=== PATIENT | male | born 1945 | race Caucasian/White ===

== ENCOUNTER 2023-06-13 11:26 | Inpatient (IN) ==
[2023-06-13 12:05] LABS: Basophils # (auto) 0.03 K/uL (0.00-0.20); Basophils % (auto) 0.3 %; Eosinophils # (auto) 0.17 K/uL (0.00-0.50); Eosinophils % (auto) 1.8 %; Hematocrit (blood only) 41.6 % (42.0-52.0); Hemoglobin 13.2 g/dl (14.0-18.0); Immature Granulocytes # (auto) 0.03 K/uL (0.01-0.20); Immature Granulocytes % (auto) 0.3 %; Lymphocytes # (auto) 1.75 K/uL (1.20-3.40); Lymphocytes % (auto) 18.9 %; Mean Corpuscular Hemoglobin 25.3 pg (25.0-34.0); Mean Corpuscular Hgb Conc 31.7 g/dL (32.0-36.0); Mean Corpuscular Volume 79.7 fL (80.0-100.0); Mean Platelet Volume 9.4 fL (9.4-12.4); Monocytes # (auto) 0.57 K/uL (0.11-0.59); Monocytes % (auto) 6.1 %; Neutrophils # (auto) 6.73 K/uL (1.40-6.50); Neutrophils % (auto) 72.6 %; Platelet Count 183 K/uL (130-400); RDW Coefficient of Variation 16.3 % (11.5-14.5); RDW Standard Deviation 46.5 fL (36.4-46.3); Red Blood Count 5.22 M/uL (4.70-6.10); White Blood Count 9.28 K/ul (4.8-10.8)
[2023-06-13 12:22] LABS: Albumin Globulin Ratio 1.9 (0.9-2); Albumin Level 4.5 gm/dl (3.4-5.0); BUN Creatinine Ratio 13.2 (10-20); Bilirubin,Total 1.4 mg/dl (0.2-1.0); Calcium 9.3 mg/dl (8.6-10.3); Creatinine Clr Calc Pharmacy 67.8 ml/min; Est GFR (African American) 78.1 ml/min; Est GFR (Non-African American) 67.4 ml/min; Globulin 2.4 gm/dl (2.5-4.0); Potassium 3.9 mmol/L (3.5-5.1); Total Protein 6.9 gm/dl (6.0-8.3)
[2023-06-13 12:29] LABS: Troponin I High Sensitivity 19.3 pg/ml (0-20)
[2023-06-13 12:33] LABS: INR 1.1 (0.9-1.1); Partial Thromboplastin Time 29 Seconds (21-31); Prothrombin Time 11.9 Seconds (9.0-12.0)
--- NOTE | 2023-06-13 12:48 | XRay Report ---
XR chest 1V not portable HISTORY: 78 years-old Male Chest pain, nonspecific COMPARISON: 02/23/2015 TECHNIQUE: PA view of the chest FINDINGS: Cardiac silhouette is enlarged. Mild chronic interstitial coarsening of the lung bases. No pneumothor ax, pleural effusion, overt pulmonary edema or airspace consolidation. Degenerative changes of the sh oulders and spine. IMPRESSION: 1. No acute process. 2. Cardiomegaly with chronic interstitial coarsening. ACT 112: Negative or not required by law. The above report was generated using voice recognition software. It may contain grammatical, syntax o r spelling errors. Electronically signed by: Cm Vicente M.D. 06/13/2023 12:47 PM
[2023-06-13] MEDS: FUROSEMIDE 40 MG/4 ML VIAL IV ONE (12:53)
[2023-06-13] MEDS: NITROGLYCERIN SL 0.4 MG/TAB TAB SL STA (12:53)
[2023-06-13] MEDS: OPTIRAY 320 125ml IV ONE (13:11)
--- NOTE | 2023-06-13 13:53 | CT Scan Report ---
CT ANGIOGRAM OF THE CHEST CLINICAL HISTORY: Dyspnea COMPARISON STUDY: Chest x-ray dated 06/13/2023. Abdominal CT dated 12/13/2022. TECHNIQUE: Following the IV administration of 118 cc of Optiray 320, CT angiogram of the chest was pe rformed from the upper abdomen to the thoracic inlet utilizing the pulmonary embolus protocol. Images are reviewed in the axial, sagittal, and coronal planes. 3-D MIPS images are created and assessed. I V contrast was administered without complication. A dose lowering technique was utilized adhering to the principles of ALARA. CT DOSE: 952.7 mGy.cm FINDINGS: Thyroid: Mildly atrophic and heterogeneous. Thoracic aorta: There is moderate atherosclerotic calcification of the thoracic aorta, which is vladimir l in caliber and demonstrates standard 3-vessel arch anatomy. The aorta is not well opacified. Pulmonary vasculature: The pulmonary trunk is normal in caliber. There are no filling defects identif ied in main, lobar, or segmental pulmonary branches to suggest pulmonary embolus. Heart: The heart is enlarged and without pericardial effusion. There are scattered coronary artery ca lcifications. Lungs and pleural spaces: There are small pleural effusions with dependent atelectasis. The trachea a nd central airways are clear. There are mild patchy nodular airspace opacities throughout the right l ower lobe. A 5 mm right middle lobe pulmonary nodule is seen on image #96, and a 3 mm right middle lo be nodule is seen on image #104. There are scattered calcified granulomas. Mediastinum: There are scattered subcentimeter mediastinal lymph nodes. These are not pathologically enlarged by size criteria. Hattie: Mildly enlarged hilar nodes measure up to 10 mm in short axis. Axillae: There is no axillary lymphadenopathy. Upper abdomen: The spleen is enlarged measuring 16.1 cm in length. Reflux of contrast into the IVC an d hepatic veins suggests cardiac dysfunction. There is a tiny hiatal hernia. Skeletal structures: The skeletal structures are osteopenic. Degenerative change is noted in the shou lders and thoracic spine. No lytic or blastic bony lesions are seen. IMPRESSION: 1. There is no evidence of pulmonary embolus in the main, lobar, or segmental pulmonary arteries. 2. Mild patchy/nodular consolidation in the right lower lobe likely represents an infectious/inflamma tory pneumonitis. A follow-up chest CT in 3-4 months time is recommended to document resolution. 3. Cardiomegaly and small pleural effusions. 4. There is a 5 mm right middle lobe pulmonary nodule. This is unchanged from 12/13/2022 and should a lso be reassessed at follow-up. 5. Splenomegaly. 6. Additional findings as above. ACT 112: Negative or not required by law. Electronically signed by: Rickie Lee M.D. 06/13/2023 1:50 PM
--- NOTE | 2023-06-13 14:25 | History & Physical Report ---
Date of Service June 13, 2023 Assessment & Plan (1) Hypoxia: Plan: -Admit to med/tele on pulse oximetry -Currently stable on 2L NC and in no respiratory distress at rest -Presented to the ED with approximately 1 week of progressive BL LE swelling, SOB/BECK -Appears volume overloaded on exam with elevated BNP and signs of congestive failure on CXR/CTA of the chest -Patient is not on diuretics outpatient and has not been using a low sodium diet -Will add on procal, full respiratory biofire, and sputum culture w/gram stain with infectious/inflammatory findings on CTA of the chest -Would recommend patient follow up with his previous [employer] or be setup with our group with his hx of working in [place] for 27 years -Incentive spirometry, flutter therapy, PRN albuterol -PRN O2 to keep SpO2 at or above 92% -Will obtain TTE as we do not have a previous in our system -S/P 40 mg IV lasix in the ED, currently with good response >Will continue with 20 mg IV lasix BID17 tomorrow -Monitor I's/O's q-shift and daily weight -SQ lovenox for DVT PPX -HH/DMII diet with 2gm sodium and 1800 mL restrictions -AM CBC, BMP, mag, PT/INR (2) Bradycardia: Plan: -Patient has been bradycardic since arrival with HR ranging from the 30's-50's -Patient has been asymptomatic -Usually occurs at rest with increase to the 50-60's with standing or exertion -Holding Atenolol for now -Continue to monitor on tele -Follow TTE -Fall precuations ordered (3) CHF exacerbation: Plan: -See hypoxia (4) PAF (paroxysmal atrial fibrillation): Plan: -Currently in sinus bradycardia -Not on anticoagulation as he is rarely in afib -Will hold Atenolol on admission with bradycardia in the ED -Continue to monitor on tele (5) DMII (diabetes mellitus, type 2): Plan: -Hold metformin and Glipizide -Monitor BSG ACHS, goal is 110-160 -Start CF 50 ACHS for now -Hold basal insulin and CR to prevent hypoglycemia -Adjust regimen as needed (6) Essential hypertension: Plan: -Stable -Continue losartan and amlodipine -Holding Atenolol with bradycardia -Monitor closely with IV diuresis Plan The patient was discussed with Dr. Lezama at the time of the admission History of Present Illness Chief Complaint: SOB Primary Care Provider: [facility] Gerald is a 78 year old male with a PMH significant for HTN, afib (not on anticoagulation), TRAVIS, hyperlipidemia, and DMII who presented to the [facility] ED on 06/13/23 with a chief complaint of SOB. He was noted to be hypertensive at 192/108, hypoxic at 84% on RA, bradycardic with HR in the 40-50's and afebrile. Labs were significant for a BNP of 529 (no previous to compare) and high sen trop WNL. Chest xray was read as "1. No acute process. 2. Cardiomegaly with chronic interstitial coarsening. ". CTA of the chest was read as "1. There is no evidence of pulmonary embolus in the main, lobar, or segmental pulmonary arteries. 2. Mild patchy/nodular consolidation in the right lower lobe likely represents an infectious/inflammatory pneumonitis. A follow-up chest CT in 3-4 months time is recommended to document resolution. 3. Cardiomegaly and small pleural effusions. 4. There is a 5 mm right middle lobe pulmonary nodule. This is unchanged from 12/13/2022 and should also be reassessed at follow-up. 5. Splenomegaly. 6. Additional findings as above.". Prior to admission the patient was given 40 mg IV lasix and 0.4 mg SL nitroglycerin. At the time of the exam the patient was sitting in bed in no acute distress with his bedside, history was obtained from both. Has been experiencing progressive BL LE swelling and SOB at rest and with exertion over the past week. Has been experiencing a non-productive cough over the same time span. Denies recent fever, chills, chest pain, hemoptysis, nausea, vomiting, diarrhea, dysuria, hematuria, melena, or recent trauma. When asked, his states that he uses salt at most meals. He is not on diuretic therapy at home. Was diagnosed with TRAVIS but his PTSD from [place] prevents him from using HS CPAP. Worked in [employer] for approximately 27 years. 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 He is a DNR/DNI and his is his POA. Please refer to Dr. Lezama's attestation for any changes to the treatment plan Allergies Allergy/AdvReac Type Severity Reaction Status Date / Time apixaban [From Eliquis] Allergy Severe Leg Unverified 06/13/23 15:50 swelling and numbness lisinopril Allergy Unknown Verified 06/13/23 15:50 Home Medications Medication Instructions Recorded Confirmed Type ascorbic acid (vitamin C) 250 mg 0 mg PO DAILY 08/02/22 06/13/23 History tablet atorvastatin 80 mg tablet 80 mg PO HS 08/02/22 06/13/23 History carboxymethylcellulose sodium 0.5 0 drp ophthalmic (eye) BID 08/02/22 06/13/23 History % eye drops in a dropperette cholecalciferol (vitamin D3) 25 0 mcg PO DAILY 08/02/22 06/13/23 History mcg (1,000 unit) capsule ferrous sulfate 325 mg (65 mg 0 mg PO DAILY 08/02/22 06/13/23 History iron) tablet glipizide 5 mg tablet 5 mg PO BID 08/02/22 06/13/23 History losartan 100 mg tablet 100 mg PO DAILY 08/02/22 06/13/23 History metformin 1,000 mg tablet 1,000 mg PO BID 08/02/22 06/13/23 History omega 1-zkz-kod-fish oil 1,000 mg 0 cap PO DAILY 08/02/22 06/13/23 History (120 mg-180 mg) capsule (Fish Oil) omeprazole 20 mg capsule,delayed 0 mg PO DAILY 08/02/22 06/13/23 History release tamsulosin 0.4 mg capsule (Flomax) 0.4 mg PO BID 08/02/22 06/13/23 History magnesium oxide 420 mg tablet 0 mg PO DAILY 08/22/22 06/13/23 History Saccharomyces boulardii 250 mg 0 mg PO BID 06/13/23 06/13/23 History capsule (Florastor) metoprolol succinate 25 mg 12.5 mg PO DAILY 06/13/23 06/13/23 History tablet,extended release 24 hr Past Med/Surg History Medical History Diverticulitis PAF (paroxysmal atrial fibrillation) Edema H/O blood clots Sleep apnea Gastro-esophageal reflux Essential hypertension Surgical History H/O tooth extraction Family History Father Myocardial infarction Mother Natural Social History Smoking Status: Never smoker Hx Alcohol Use: No Hx Substance Use: No Communication Ability: Effective Beliefs That Will Affect Care: None marital status: Current Living Situation: Spouse current occupational status: retired How many Children do You have: 3 Feels Safe at Home: Yes caffeine: Yes Dental Care, Regularly: Yes Assistive Devices: Denture - Lower, Glasses and Hearing Aid - Bilateral Physical Exam Physical Exam: Physical Exam: General: In no acute distress, stated age, morbidly obese, chronically ill appearing but non-toxic HEENT: Normocephalic, atraumatic, no scleral icterus, pupils around round, symmetrical, and reactive to light, +JVD, moist mucus membranes, trachea midline, no thyromegaly Chest/Pulm: Mild respiratory distress when standing to use the bedside urinal, improves with rest, symmetrical chest expansion, rhonchi noted in the RLL with decreased breath sounds in the LLL, scattered expiratory wheezing in all other gross Cardiac: bradycardic rate, regular rhythm, no murmurs noted Abdomen: Negative for ascites and bruising, normoactive bowel sounds, soft, non-tender to palpation throughout Musculoskeletal: Symmetrical and without signs of acute trauma, upper and lower extremities with full ROM, no atrophy, spasticity, or flaccidity Extremities: Radial, dorsalis pedis, and posterior tibial pulses are intact and symmetrical, 1-2+ pitting edema noted in the BL LE's Skin: Warm, dry, no rashes , lesions, or scars noted Neuro: Alert and oriented to person, place, month, year, and president, no focal defects, no tremors noted Psych: No acute distress, pleasant, calm and cooperative during the exam Results & Data Results & Data Vital Signs (Past 12 Hours) Vital Signs Temp Pulse Pulse Resp BP BP Pulse Ox 06/13/23 13:45 58 L 19 174/99 H 95 06/13/23 13:23 51 L 24 92 06/13/23 13:09 93 06/13/23 13:08 84 L 06/13/23 12:54 50 L 06/13/23 11:31 36.9 C 60 18 192/108 H 92 O2 Del Method O2 Flow Rate 06/13/23 13:45 Nasal Cannula 2 06/13/23 13:23 Nasal Cannula 2 06/13/23 13:09 Nasal Cannula 2 06/13/23 13:08 Room Air 06/13/23 12:54 06/13/23 11:31 Room Air Laboratory Results Abnormal lab results 06/13/23 Range/Units 11:42 Hgb 13.2 L (14.0-18.0) g/dl Hct 41.6 L (42.0-52.0) % MCV 79.7 L (80.0-100.0) fL MCHC 31.7 L (32.0-36.0) g/dL RDW Std Deviation 46.5 H (36.4-46.3) fL RDW Coeff of Shalom 16.3 H (11.5-14.5) % Neut # (Auto) 6.73 H (1.40-6.50) K/uL Carbon Dioxide 33 H (21-32) mmol/L Glucose 102 H (70-99(Fasting)) mg/dl Total Bilirubin 1.4 H (0.2-1.0) mg/dl B-Natriuretic Peptide 529 H (0-100) pg/ml Globulin 2.4 L (2.5-4.0) gm/dl Diagnostic Findings Chest X-Ray 06/13/23 11:35 XR chest 1V not portable HISTORY: 78 years-old Male Chest pain, nonspecific COMPARISON: 02/23/2015 TECHNIQUE: PA view of the chest FINDINGS: Cardiac silhouette is enlarged. Mild chronic interstitial coarsening of the lung bases. No pneumothorax, pleural effusion, overt pulmonary edema or airspace consolidation. Degenerative changes of the shoulders and spine. IMPRESSION: 1. No acute process. 2. Cardiomegaly with chronic interstitial coarsening. ACT 112: Negative or not required by law. The above report was generated using voice recognition software. It may contain grammatical, syntax or spelling errors. Electronically signed by: Cm Vicente M.D. 06/13/2023 12:47 PM Chest CTA 06/13/23 12:49 CT ANGIOGRAM OF THE CHEST CLINICAL HISTORY: Dyspnea COMPARISON STUDY: Chest x-ray dated 06/13/2023. Abdominal CT dated 12/13/2022. TECHNIQUE: Following the IV administration of 118 cc of Optiray 320, CT angiogram of the chest was performed from the upper abdomen to the thoracic inlet utilizing the pulmonary embolus protocol. Images are reviewed in the axial, sagittal, and coronal planes. 3-D MIPS images are created and assessed. IV contrast was administered without complication. A dose lowering technique was utilized adhering to the principles of ALARA. CT DOSE: 952.7 mGy.cm FINDINGS: Thyroid: Mildly atrophic and heterogeneous. Thoracic aorta: There is moderate atherosclerotic calcification of the thoracic aorta, which is normal in caliber and demonstrates standard 3-vessel arch anatomy. The aorta is not well opacified. Pulmonary vasculature: The pulmonary trunk is normal in caliber. There are no filling defects identified in main, lobar, or segmental pulmonary branches to suggest pulmonary embolus. Heart: The heart is enlarged and without pericardial effusion. There are scattered coronary artery calcifications. Lungs and pleural spaces: There are small pleural effusions with dependent atelectasis. The trachea and central airways are clear. There are mild patchy nodular airspace opacities throughout the right lower lobe. A 5 mm right middle lobe pulmonary nodule is seen on image #96, and a 3 mm right middle lobe nodule is seen on image #104. There are scattered calcified granulomas. Mediastinum: There are scattered subcentimeter mediastinal lymph nodes. These are not pathologically enlarged by size criteria. Hattie: Mildly enlarged hilar nodes measure up to 10 mm in short axis. Axillae: There is no axillary lymphadenopathy. Upper abdomen: The spleen is enlarged measuring 16.1 cm in length. Reflux of contrast into the IVC and hepatic veins suggests cardiac dysfunction. There is a tiny hiatal hernia. Skeletal structures: The skeletal structures are osteopenic. Degenerative change is noted in the shoulders and thoracic spine. No lytic or blastic bony lesions are seen. IMPRESSION: 1. There is no evidence of pulmonary embolus in the main, lobar, or segmental pulmonary arteries. 2. Mild patchy/nodular consolidation in the right lower lobe likely represents an infectious/inflammatory pneumonitis. A follow-up chest CT in 3-4 months time is recommended to document resolution. 3. Cardiomegaly and small pleural effusions. 4. There is a 5 mm right middle lobe pulmonary nodule. This is unchanged from 12/13/2022 and should also be reassessed at follow-up. 5. Splenomegaly. 6. Additional findings as above. ACT 112: Negative or not required by law. Electronically signed by: Rickie Lee M.D. 06/13/2023 1:50 PM ECG Additional Comments: Undetermined rhythm Right bundle branch block Abnormal ECG When compared with ECG of 22-AUG-2022 13:31, (unconfirmed) Current undetermined rhythm precludes rhythm comparison, needs review Non-specific change in ST segment in Inferior leads Non-specific change in ST segment in Anterior leads Code Status & VTE Plan Code Status DNR/DNI VTE Prophylaxis Plan VTE Prophylaxis will be ordered: Yes Supervising Physician Co-Signing Physician Notes I personally saw and examined the patient. I verified all perera points and agree with Myke Salazar PA-C with the following exceptions and/or additions: 78 year old male presents to the ER with shortness of breath (orthopnea) and leg swelling. Unknown if having weight gain. No chest pain, diarrhea, constipation, abdominal pain, nausea, vomiting, fever or chills. Slow progressive worsening of symptoms over the last week. O/E HS RRR, no murmurs, Chest bibasal crackles, Abdo SNT, 2+ pitting edema b/l equal A/P Acute congestive heart failure with unknown ejection fraction - TTE, Lasix 40mg IV given in ER, since he is diuretic naive will start with 20mg IV BID with strict I&Os, daily weights. UA to assess for proteinuria [place] exposure with abnormal CT - recommend follow up with pulmonology PG Care Time/CCT Total # of Minutes Spent Total Time Spent with Patient: Total time spent is greater than 50% in coordination of care (as documented) at patient's floor/unit and/or counseling patient: Coding [place] [address] INT INP/OBS CARE 3/75MIN Patient Type Established Medical Decision Making High Complexity Diagnoses Hypoxia R09.02 Bradycardia R00.1 CHF exacerbation I50.9 PAF (paroxysmal atrial fibrillation) I48.0 DMII (diabetes mellitus, type 2) E11.9 Essential hypertension I10
[2023-06-13] MEDS ORDERED: ALBUTEROL 0.5% NEB SOLN 2.5 MG/0.5 ML VIAL NEB PRN (14:45)
[2023-06-13] MEDS ORDERED: GLUCOSE 40% GEL 15 GM TUBE PO PRN (14:56)
[2023-06-13] MEDS ORDERED: CARBOHYDRATES FOR HYPOGLYCEMIA PO PRN (14:56)
[2023-06-13] MEDS ORDERED: GLUCOSE 10 TAB/TUBE PO PRN (14:56)
[2023-06-13] MEDS ORDERED: GLUCAGON FOR INJ 1 MG VIAL SQ PRN (14:56)
[2023-06-13] MEDS ORDERED: DEXTROSE 50% 50 ML SYRINGE IV PRN (14:56)
[2023-06-13 16:08] LABS: Adenovirus PCR Not Detected (NotDetected); Bordetella parapertussis PCR Not Detected (NotDetected); Bordetella pertussis PCR Not Detected (NotDetected); Chlamydia pneumoniae PCR Not Detected (NotDetected); Coronavirus 229E PCR Not Detected (NotDetected); Coronavirus CoV-2 (COVID19)PCR Not Detected (NotDetected); Coronavirus HKU1 PCR Not Detected (NotDetected); Coronavirus NL63 PCR Not Detected (NotDetected); Coronavirus OC43PCR Not Detected (NotDetected); Human Metapneumovirus PCR Not Detected (NotDetected); Influenza A PCR Not Detected (NotDetected); Influenza B PCR Not Detected (NotDetected); Mycoplasma pneumoniae PCR Not Detected (NotDetected); Parainfluenza Virus 1 PCR Not Detected (NotDetected); Parainfluenza Virus 2 PCR Not Detected (NotDetected); Parainfluenza Virus 3 PCR Not Detected (NotDetected); Parainfluenza Virus 4 PCR Not Detected (NotDetected); Respiratory Syncytial VirusPCR Not Detected (NotDetected); Rhinovirus/Enterovirus PCR Not Detected (NotDetected)
--- NOTE | 2023-06-13 16:49 | Electrocardiogram Report ---
Test Reason : Blood Pressure : / mmHG Vent. Rate : 054 BPM Atrial Rate : 070 BPM P-R Int : 000 ms QRS Dur : 114 ms QT Int : 468 ms P-R-T Axes : 061 029 -11 degrees QTc Int : 443 ms Sinus rhythm with Mobitz 1 AV block Right bundle branch block Abnormal ECG When compared with ECG of 22-AUG-2022 13:31, (unconfirmed) Non-specific change in ST segment in Inferior leads Non-specific change in ST segment in Anterior leads Confirmed by Ry Mueller ([id number]) on 06/13/2023 4:49:34 PM Referred By: REFERRED SELF Confirmed By:Robert Mueller
--- NOTE | 2023-06-13 18:16 | XCELERA ---
[id number] \\[id number]
[2023-06-13] MEDS: INSULIN ASPART PER UNIT CHARGE SC SCH (18:20)
--- NOTE | 2023-06-13 18:29 | Emergency Department Note ---
History of Present Illness General Chief Complaint: Shortness of Breath/Dyspnea Stated Complaint: SOB, TROUBLE BREATHING Time Seen by Provider: 06/13/23 12:16 History of Present Illness Provider Complaint: shortness of breath Onset (ago): week(s) (1) Severity: severe Consistency/Duration: + progressively worsening Relieved By: + nothing Exacerbated By: + exertion and + coughing Known history of: congestive heart failure Associated symptoms: no chest pain, no pain with inspiration, no fever, no cough, no wheezing, no sputum production, no orthopnea, no lower extremity pain, no nausea/vomiting, no abdominal pain or no chest congestion Related Data Home oxygen amount: none Home Medications Medication Instructions Recorded Confirmed Type ascorbic acid (vitamin C) 250 mg 0 mg PO DAILY 08/02/22 06/13/23 History tablet atorvastatin 80 mg tablet 80 mg PO HS 08/02/22 06/13/23 History carboxymethylcellulose sodium 0.5 0 drp ophthalmic (eye) BID 08/02/22 06/13/23 History % eye drops in a dropperette cholecalciferol (vitamin D3) 25 0 mcg PO DAILY 08/02/22 06/13/23 History mcg (1,000 unit) capsule ferrous sulfate 325 mg (65 mg 0 mg PO DAILY 08/02/22 06/13/23 History iron) tablet glipizide 5 mg tablet 5 mg PO BID 08/02/22 06/13/23 History losartan 100 mg tablet 100 mg PO DAILY 08/02/22 06/13/23 History metformin 1,000 mg tablet 1,000 mg PO BID 08/02/22 06/13/23 History omega 4-tom-ovy-fish oil 1,000 mg 0 cap PO DAILY 08/02/22 06/13/23 History (120 mg-180 mg) capsule (Fish Oil) omeprazole 20 mg capsule,delayed 0 mg PO DAILY 08/02/22 06/13/23 History release tamsulosin 0.4 mg capsule (Flomax) 0.4 mg PO BID 08/02/22 06/13/23 History magnesium oxide 420 mg tablet 0 mg PO DAILY 08/22/22 06/13/23 History Saccharomyces boulardii 250 mg 0 mg PO BID 06/13/23 06/13/23 History capsule (Florastor) metoprolol succinate 25 mg 12.5 mg PO DAILY 06/13/23 06/13/23 History tablet,extended release 24 hr Allergies Allergy/AdvReac Type Severity Reaction Status Date / Time apixaban [From Eliquis] Allergy Severe Leg Unverified 06/13/23 15:50 swelling and numbness lisinopril Allergy Unknown Verified 06/13/23 15:50 Past Med/Surg History Medical History Diverticulitis PAF (paroxysmal atrial fibrillation) Edema H/O blood clots Sleep apnea Gastro-esophageal reflux Essential hypertension Surgical History H/O tooth extraction Family History Father Myocardial infarction Mother Natural Social History Smoking Status: Never smoker marital status: Current Living Situation: Spouse current occupational status: retired How many Children do You have: 3 Feels Safe at Home: Yes caffeine: Yes Dental Care, Regularly: Yes Physical Exam 2 Vital Signs: Vital Signs - 24 hr 06/13/23 11:31 06/13/23 12:40 06/13/23 12:54 Temperature 36.9 C Temperature Source Temporal Artery Sc an Pulse Rate 60 57 L 50 L Pulse Rate [Apical ] Pulse Rate from Sp O2 Sensor 55 L Pulse Rhythm Respiratory Rate 18 21 Respiratory Effort / Characteristics Non-Labored Respiratory Depth Normal Respiratory Patter n Regular Blood Pressure 192/108 H Blood Pressure [Le ft Arm] Blood Pressure Ami n 136 Blood Pressure Ami n [Left Arm] Blood Pressure Pos ition [Left Arm] Pulse Oximetry 92 92 Oxygen Delivery Me thod Room Air Nasal Cannula Oxygen Flow Rate 2 Sepsis Recent Feve r Within 48 Hours No Sepsis New/Unexpla ined Change in Men sarabjit Status N/A Sepsis Action Take n by Nursing No Action Required 06/13/23 13:00 06/13/23 13:01 06/13/23 13:08 Temperature Temperature Source Pulse Rate 69 Pulse Rate [Apical ] Pulse Rate from Sp O2 Sensor 60 Pulse Rhythm Respiratory Rate 24 Respiratory Effort / Characteristics Respiratory Depth Respiratory Patter n Blood Pressure 195/97 H Blood Pressure [Le ft Arm] Blood Pressure Ami n 127 Blood Pressure Ami n [Left Arm] Blood Pressure Pos ition [Left Arm] Pulse Oximetry 91 84 L Oxygen Delivery Me thod Nasal Cannula Room Air Oxygen Flow Rate 2 Sepsis Recent Feve r Within 48 Hours Sepsis New/Unexpla ined Change in Men sarabjit Status Sepsis Action Take n by Nursing 06/13/23 13:09 06/13/23 13:22 06/13/23 13:22 Temperature Temperature Source Pulse Rate 53 L Pulse Rate [Apical ] Pulse Rate from Sp O2 Sensor 54 L Pulse Rhythm Respiratory Rate 22 Respiratory Effort / Characteristics Respiratory Depth Respiratory Patter n Blood Pressure 190/94 H Blood Pressure [Le ft Arm] Blood Pressure Ami n 119 Blood Pressure Ami n [Left Arm] Blood Pressure Pos ition [Left Arm] Pulse Oximetry 93 94 Oxygen Delivery Me thod Nasal Cannula Nasal Cannula Oxygen Flow Rate 2 2 Sepsis Recent Feve r Within 48 Hours Sepsis New/Unexpla ined Change in Men sarabjit Status Sepsis Action Take n by Nursing 06/13/23 13:23 06/13/23 13:30 06/13/23 13:31 Temperature Temperature Source Pulse Rate 51 L 86 Pulse Rate [Apical ] Pulse Rate from Sp O2 Sensor Pulse Rhythm Irregular Respiratory Rate 24 96 H Respiratory Effort / Characteristics Respiratory Depth Respiratory Patter n Blood Pressure Blood Pressure [Le ft Arm] Blood Pressure Ami n Blood Pressure Ami n [Left Arm] Blood Pressure Pos ition [Left Arm] Pulse Oximetry 92 Oxygen Delivery Me thod Nasal Cannula Oxygen Flow Rate 2 Sepsis Recent Feve r Within 48 Hours Sepsis New/Unexpla ined Change in Men sarabjit Status Sepsis Action Take n by Nursing 06/13/23 13:31 06/13/23 13:45 06/13/23 13:45 Temperature Temperature Source Pulse Rate 58 L Pulse Rate [Apical ] 58 L Pulse Rate from Sp O2 Sensor Pulse Rhythm Respiratory Rate 19 17 Respiratory Effort / Characteristics Non-Labored Sponta neous Respiratory Depth Normal Respiratory Patter n Blood Pressure 159/124 H Blood Pressure [Le ft Arm] 174/99 H Blood Pressure Ami n 133 Blood Pressure Ami n [Left Arm] 124 Blood Pressure Pos ition [Left Arm] Sitting Pulse Oximetry 95 Oxygen Delivery Me thod Nasal Cannula Oxygen Flow Rate 2 Sepsis Recent Feve r Within 48 Hours Sepsis New/Unexpla ined Change in Men sarabjit Status Sepsis Action Take n by Nursing 06/13/23 13:45 06/13/23 14:00 06/13/23 14:00 Temperature Temperature Source Pulse Rate Pulse Rate [Apical ] Pulse Rate from Sp O2 Sensor 54 L Pulse Rhythm Respiratory Rate Respiratory Effort / Characteristics Respiratory Depth Respiratory Patter n Blood Pressure 174/99 H 178/101 H Blood Pressure [Le ft Arm] Blood Pressure Ami n 108 144 Blood Pressure Ami n [Left Arm] Blood Pressure Pos ition [Left Arm] Pulse Oximetry 94 Oxygen Delivery Me thod Oxygen Flow Rate Sepsis Recent Feve r Within 48 Hours Sepsis New/Unexpla ined Change in Men sarabjit Status Sepsis Action Take n by Nursing 06/13/23 14:15 06/13/23 14:15 Temperature Temperature Source Pulse Rate 61 Pulse Rate [Apical ] Pulse Rate from Sp O2 Sensor 59 L Pulse Rhythm Respiratory Rate 20 Respiratory Effort / Characteristics Respiratory Depth Respiratory Patter n Blood Pressure 174/104 H Blood Pressure [Le ft Arm] Blood Pressure Ami n 133 Blood Pressure Ami n [Left Arm] Blood Pressure Pos ition [Left Arm] Pulse Oximetry 90 Oxygen Delivery Me thod Oxygen Flow Rate Sepsis Recent Feve r Within 48 Hours Sepsis New/Unexpla ined Change in Men sarabjit Status Sepsis Action Take n by Nursing Physical Exam: Physical Exam GENERAL: oriented to person, place, and time. appears well-developed and well- nourished. HENT: Exam performed. - Head: Normocephalic and atraumatic. EYES: Conjunctivae and EOM are normal. Right eye exhibits no discharge. Left eye exhibits no discharge. No scleral icterus. NECK: Normal range of motion. Neck supple. No JVD present. CV: Normal rate, regular rhythm, normal heart sounds and intact distal pulses. 2+ pitting edema of the bilateral lower extremities. palpable radial pulses bue. PULM/CHEST: Effort normal and breath sounds normal. No respiratory distress. No stridor. no wheezes. no rales. ABD: The abdomen is soft. There is no tenderness. NEURO: Motor and sensation grossly intact. SKIN: Skin is warm and dry. He is not diaphoretic. PSYCH: normal mood and affect. Behavior is normal. Judgment and thought content normal. Course Course 1216: The patient was evaluated in room B9. A complete history and physical exam was performed Cardiac monitoring: An order was placed for continuous cardiac monitoring. The monitor shows a rate of 50 with sinus rhythm interpreted by me Clinically the patient appears to be in CHF and is very hypertensive. Nitroglycerin ordered for the patient. 1400: Nursing reports me that the patient got up to use the restroom and then became acutely dyspneic and his oxygen saturation dropped down to 80% on room air. Patient placed on supplemental oxygen via nasal cannula which improved the patient's oxygen saturation. 1425: Vital signs stable on supplemental oxygen via nasal cannula. Labs showed normal troponin and elevated proBNP. CTA of the chest is negative for PE. Imaging shows cardiomegaly with bilateral pleural effusions. Lasix ordered for the patient. Patient will be admitted to the [facility]. Administered Medications Insulin Aspart (Insulin Aspart Per Unit Charge) 0 units SC ACHS HONEY Stop: 07/13/23 16:29 Last Admin: 06/13/23 18:20 Dose: Not Given Documented By: JAYSHREE Discontinued Medications Furosemide (Furosemide 40 Mg/4 Ml Vial) 40 mg IV ONE ONE Stop: 06/13/23 12:50 Last Admin: 06/13/23 12:53 Dose: 40 mg Documented By: JEFFREY Ioversol (Optiray 320 125ml) 118 ml IV ONCE ONE Stop: 06/13/23 13:12 Last Admin: 06/13/23 13:11 Dose: 118 ml Documented By: STEVE Nitroglycerin (Nitroglycerin Sl 0.4 Mg/Tab Tab) 0.4 mg SL NOW STA Stop: 06/13/23 12:50 Last Admin: 06/13/23 12:53 Dose: 0.4 mg Documented By: JEFFREY Medical Decision Making Laboratory Data Attestation: I reviewed the patient's lab results. 06/13/23 11:42 06/13/23 11:42 Lab Results 06/13/23 Range/Units 11:42 WBC 9.28 (4.8-10.8) K/ul RBC 5.22 (4.70-6.10) M/uL Hgb 13.2 L (14.0-18.0) g/dl Hct 41.6 L (42.0-52.0) % MCV 79.7 L (80.0-100.0) fL MCH 25.3 (25.0-34.0) pg MCHC 31.7 L (32.0-36.0) g/dL RDW Std Deviation 46.5 H (36.4-46.3) fL RDW Coeff of Shalom 16.3 H (11.5-14.5) % Plt Count 183 (130-400) K/uL MPV 9.4 (9.4-12.4) fL Immature Gran % (Auto) 0.3 % Neut % (Auto) 72.6 % Lymph % (Auto) 18.9 % [place] % (Auto) 6.1 % Eos % (Auto) 1.8 % Baso % (Auto) 0.3 % Neut # (Auto) 6.73 H (1.40-6.50) K/uL Lymph # (Auto) 1.75 (1.20-3.40) K/uL [place] # (Auto) 0.57 (0.11-0.59) K/uL Eos # (Auto) 0.17 (0.00-0.50) K/uL Baso # (Auto) 0.03 (0.00-0.20) K/uL Immature Gran # (Auto) 0.03 (0.01-0.20) K/uL PT 11.9 (9.0-12.0) Seconds INR 1.1 (0.9-1.1) APTT 29 (21-31) Seconds PTT Ratio 1.0 Sodium 139 (136-145) mmol/L Potassium 3.9 (3.5-5.1) mmol/L Chloride 100 (98-107) mmol/L Carbon Dioxide 33 H (21-32) mmol/L Anion Gap 6 (3-11) BUN 14 (6-23) mg/dl Creatinine 1.06 (0.6-1.4) mg/dl Est Cr Clr Drug Dosing 67.8 ml/min Est GFR ( Amer) 78.1 ml/min Est GFR (Non-Af Amer) 67.4 ml/min BUN/Creatinine Ratio 13.2 (10-20) Glucose 102 H (70-99(Fasting)) mg/dl Calcium 9.3 (8.6-10.3) mg/dl Total Bilirubin 1.4 H (0.2-1.0) mg/dl AST 15 (13-39) U/L ALT 21 (7-52) U/L Alkaline Phosphatase 83 (34-104) U/L Troponin I High Sens 19.3 (0-20) pg/ml B-Natriuretic Peptide 529 H (0-100) pg/ml Total Protein 6.9 (6.0-8.3) gm/dl Albumin 4.5 (3.4-5.0) gm/dl Globulin 2.4 L (2.5-4.0) gm/dl Albumin/Globulin Ratio 1.9 (0.9-2) Procalcitonin < 0.02 (0-0.5) ng/ml Imaging Data Attestation: I personally reviewed and interpreted this imaging study as follows: My Impression: Chest x-ray: Cardiomegaly with no cephalization Radiologist's Impression: Chest X-Ray 06/13/23 11:35 XR chest 1V not portable HISTORY: 78 years-old Male Chest pain, nonspecific COMPARISON: 02/23/2015 TECHNIQUE: PA view of the chest FINDINGS: Cardiac silhouette is enlarged. Mild chronic interstitial coarsening of the lung bases. No pneumothorax, pleural effusion, overt pulmonary edema or airspace consolidation. Degenerative changes of the shoulders and spine. IMPRESSION: 1. No acute process. 2. Cardiomegaly with chronic interstitial coarsening. ACT 112: Negative or not required by law. The above report was generated using voice recognition software. It may contain grammatical, syntax or spelling errors. Electronically signed by: Cm Vicente M.D. 06/13/2023 12:47 PM Chest CTA 06/13/23 12:49 CT ANGIOGRAM OF THE CHEST CLINICAL HISTORY: Dyspnea COMPARISON STUDY: Chest x-ray dated 06/13/2023. Abdominal CT dated 12/13/2022. TECHNIQUE: Following the IV administration of 118 cc of Optiray 320, CT angiogram of the chest was performed from the upper abdomen to the thoracic inlet utilizing the pulmonary embolus protocol. Images are reviewed in the axial, sagittal, and coronal planes. 3-D MIPS images are created and assessed. IV contrast was administered without complication. A dose lowering technique was utilized adhering to the principles of ALARA. CT DOSE: 952.7 mGy.cm FINDINGS: Thyroid: Mildly atrophic and heterogeneous. Thoracic aorta: There is moderate atherosclerotic calcification of the thoracic aorta, which is normal in caliber and demonstrates standard 3-vessel arch anatomy. The aorta is not well opacified. Pulmonary vasculature: The pulmonary trunk is normal in caliber. There are no filling defects identified in main, lobar, or segmental pulmonary branches to suggest pulmonary embolus. Heart: The heart is enlarged and without pericardial effusion. There are scattered coronary artery calcifications. Lungs and pleural spaces: There are small pleural effusions with dependent atelectasis. The trachea and central airways are clear. There are mild patchy nodular airspace opacities throughout the right lower lobe. A 5 mm right middle lobe pulmonary nodule is seen on image #96, and a 3 mm right middle lobe nodule is seen on image #104. There are scattered calcified granulomas. Mediastinum: There are scattered subcentimeter mediastinal lymph nodes. These are not pathologically enlarged by size criteria. Hattie: Mildly enlarged hilar nodes measure up to 10 mm in short axis. Axillae: There is no axillary lymphadenopathy. Upper abdomen: The spleen is enlarged measuring 16.1 cm in length. Reflux of contrast into the IVC and hepatic veins suggests cardiac dysfunction. There is a tiny hiatal hernia. Skeletal structures: The skeletal structures are osteopenic. Degenerative change is noted in the shoulders and thoracic spine. No lytic or blastic bony lesions are seen. IMPRESSION: 1. There is no evidence of pulmonary embolus in the main, lobar, or segmental pulmonary arteries. 2. Mild patchy/nodular consolidation in the right lower lobe likely represents an infectious/inflammatory pneumonitis. A follow-up chest CT in 3-4 months time is recommended to document resolution. 3. Cardiomegaly and small pleural effusions. 4. There is a 5 mm right middle lobe pulmonary nodule. This is unchanged from 12/13/2022 and should also be reassessed at follow-up. 5. Splenomegaly. 6. Additional findings as above. ACT 112: Negative or not required by law. Electronically signed by: Rickie Lee M.D. 06/13/2023 1:50 PM ECG Data Attestation: I personally reviewed and interpreted this ECG as follows: Interpretation: Sinus arrhythmia with a rate of 54. Right bundle branch block present. No ST elevation or ST depression. [facility] Narrative 1216: The patient was evaluated in room B9. A complete history and physical exam was performed Cardiac monitoring: An order was placed for continuous cardiac monitoring. The monitor shows a rate of 50 with sinus rhythm interpreted by me Clinically the patient appears to be in CHF and is very hypertensive. Nitroglycerin ordered for the patient. 1400: Nursing reports me that the patient got up to use the restroom and then became acutely dyspneic and his oxygen saturation dropped down to 80% on room air. Patient placed on supplemental oxygen via nasal cannula which improved the patient's oxygen saturation. 1425: Vital signs stable on supplemental oxygen via nasal cannula. Labs showed normal troponin and elevated proBNP. CTA of the chest is negative for PE. Imaging shows cardiomegaly with bilateral pleural effusions. Lasix ordered for the patient. Patient will be admitted to the [facility] team. Impression & Plan Hypoxia, CHF exacerbation Critical Care Time Critical Care Time: Yes Total Critical Care Time: 77 I have personally spent greater than 77 minutes of critical care time in the direct management of this patient. This includes bedside care, interpretation of diagnostic studies, and testing, discussion with consultants, patient, and family members, and other required patient management activities. This 77 minutes is in excess of all separately billable procedures. Discharge Plan Visit Data Chief Complaint: Shortness of Breath/Dyspnea Stated Complaint: SOB, TROUBLE BREATHING ED Provider: Toño Keane Discharge Problem: Hypoxia, CHF exacerbation Patient Disposition: Admitted As Inpatient Discharge Instructions Interventions: ED Discharge Assessment Last Done: 06/13/23 17:15 Discharge Problem: CHF exacerbation Qualifiers: Heart failure type: unspecified Qualified Code(s): I50.9 - Heart failure, unspecified
[2023-06-13] MEDS: ENOXAPARIN INJ 40 MG/0.4 ML SYR SQ SCH (20:01)
[2023-06-13 23:04] LABS: Appearance Urine Clear (Clear); Bacteria Urine Automated None Seen (None Seen); Bilirubin Urine Negative (Negative); Blood Urine Negative (Negative); Cast Urine Automated 0-2 /lpf (0-2); Color Urine Yellow; Epithelial Cell Urine Auto 0-2 /hpf (0-2); Glucose Urine UA Negative (Negative); Ketones Urine Negative (Negative); Leukocyte Esterase Urine Negative (Negative); Nitrite Urine Negative (Negative); Protein Urine 1+ (Negative); RBC Urine Automated 0-2 /hpf (0-2); Specific Gravity Urine 1.006 (1.000-1.030); Urobilinogen Urine Negative (Negative); WBC Urine Automated 0-5 /hpf (0-5); pH Urine 7.5 (4.5-7.5)
[2023-06-14 04:02] LABS: Basophils # (auto) 0.04 K/uL (0.00-0.20); Basophils % (auto) 0.5 %; Eosinophils # (auto) 0.15 K/uL (0.00-0.50); Eosinophils % (auto) 1.8 %; Hematocrit (blood only) 40.4 % (42.0-52.0); Hemoglobin 12.7 g/dl (14.0-18.0); Immature Granulocytes # (auto) 0.04 K/uL (0.01-0.20); Immature Granulocytes % (auto) 0.5 %; Lymphocytes # (auto) 1.53 K/uL (1.20-3.40); Lymphocytes % (auto) 18.6 %; Mean Corpuscular Hemoglobin 25.5 pg (25.0-34.0); Mean Corpuscular Hgb Conc 31.4 g/dL (32.0-36.0); Mean Corpuscular Volume 81.1 fL (80.0-100.0); Mean Platelet Volume 9.8 fL (9.4-12.4); Monocytes # (auto) 0.52 K/uL (0.11-0.59); Monocytes % (auto) 6.3 %; Neutrophils # (auto) 5.96 K/uL (1.40-6.50); Neutrophils % (auto) 72.3 %; Platelet Count 186 K/uL (130-400); RDW Coefficient of Variation 16.4 % (11.5-14.5); RDW Standard Deviation 47.6 fL (36.4-46.3); Red Blood Count 4.98 M/uL (4.70-6.10); White Blood Count 8.24 K/ul (4.8-10.8)
[2023-06-14 04:19] LABS: BUN Creatinine Ratio 12.8 (10-20); Calcium 8.5 mg/dl (8.6-10.3); Creatinine Clr Calc Pharmacy 57.2 ml/min; Est GFR (Non-African American) 55.2 ml/min; Magnesium 1.5 mg/dl (1.7-2.4); Potassium 3.4 mmol/L (3.5-5.1)
--- NOTE | 2023-06-14 07:46 | Hospitalist Progress Note ---
Date of Service June 14, 2023 Assessment & Plan (1) Hypoxia: Plan: -Admit to med/tele on pulse oximetry -Currently stable on 2L NC and in no respiratory distress at rest -Presented to the ED with approximately 1 week of progressive BL LE swelling, SOB/BECK -Appears volume overloaded on exam with elevated BNP and signs of congestive failure on CXR/CTA of the chest -Patient is not on diuretics outpatient and has not been using a low sodium diet -Will add on procal, full respiratory biofire, and sputum culture w/gram stain with infectious/inflammatory findings on CTA of the chest -Would recommend patient follow up with his previous [employer] or be setup with our group with his hx of working in [employer] for 27 years -Incentive spirometry, flutter therapy, PRN albuterol -PRN O2 to keep SpO2 at or above 92% -Will obtain TTE as we do not have a previous in our system -S/P 40 mg IV lasix in the ED, currently with good response >Will continue with 20 mg IV lasix BID17 tomorrow -Monitor I's/O's q-shift and daily weight -SQ lovenox for DVT PPX -HH/DMII diet with 2gm sodium and 1800 mL restrictions -AM CBC, BMP, mag, PT/INR Imaging noting reflux of contrast into IVC and hepatic veins suggests cardiac dysfunction. Tiny hiatal hernia noted Cardiomegaly and small pleural effusions.Mild patchy/nodular consolidation in the right lower lobe likely represents an infectious/inflammatory pneumonitis. A follow-up chest CT in 3-4 months time is recommended to document resolution. Lasix 20mg IV BID ordered, K PO supplementation ordered for today, 40meq to bring up a little more given ongoing diuresis/hx afib. Of note, outpt cards note brought on by hypomagnesemia --> Mag 1.5 this morning, 3gm IV ordered. Monitor/replacement as needed -- He also reports he had not known in afib and never w/ monitor. Likely benefit for holter monitor to see how often in, strongly encouraged f/u discussions about AC//considering xarelto/coumadin for risk prevention. Remains on telemetry Add TSH to labs given hx pafib/bradycardia and no prior TSH in system. Prior noted subclinical hypothyroidism Weights appear 109.7kg--> 108.6kg (was up to 110kg in February but 106kg in July/November)--> 106.8kg today Discussed I suspect multiple components -- he does endorse TRAVIS but unable to tolerate CPAP due to PTSD but able to tolerate nasal cannula without issue. Discussed could consider nasal pillows as untreated sleep apnea contributing to elevated BP as well as arrythmias and heart failure. Was provided hydralazine w/ improvement in BP. Lasix increased to 40mg IV BID for now, leg edema/weights improved Wanting to transfer to for ongoing care -- CM contacting for discussion Repeat labs ordered for this afternoon Supplemental O2 as needed (2) Bradycardia: Plan: -Patient has been bradycardic since arrival with HR ranging from the 30's-50's -Patient has been asymptomatic -Usually occurs at rest with increase to the 50-60's with standing or exertion -Holding Atenolol for now -- was ordered and given metoprolol 12.5mg this morning, further held/discontinued appears on metoprolol at home , not atenolol Confirmed with patient/, had been taking metoprolol as on his medication list however patient reports he had been taking a WHOLE tablet, so was actually on 25mg daily --> STOPPED per cardiology due to bradycardia/mobitz Would arrange for holter/event monitor as outpatient, continue to monitor on telemetry ECHO ordered as above, fall precaution SH check, check T4/T3 for completeness (3) CHF exacerbation: Plan: -See hypoxia also suspect degree underlying TRAVIS contributing, orthopnea/prior diagnosis but not able to tolerate CPAP mask however as above tolerating the nasal cannula without issue and likely benefit for discussions for for CPAP w/ nasal pillows (4) PAF (paroxysmal atrial fibrillation): Plan: -Currently in sinus bradycardia -Not on anticoagulation as he is rarely in afib -Will hold METOPROLOL on admission with bradycardia in the ED , given this morning but DISCONTINUED (was taking 25mg as outlined above) -Continue to monitor on tele Mag low, IV replacement ordered --> resuming mag oxide BID as takes at home as well (5) DMII (diabetes mellitus, type 2): Plan: -Hold metformin and Glipizide -Monitor BSG ACHS, goal is 110-160 -Start CF 50 ACHS for now -Hold basal insulin and CR to prevent hypoglycemia -Adjust regimen as needed (6) Essential hypertension: Plan: -Stable -Continue losartan and amlodipine -Holding Atenolol with bradycardia -Monitor closely with IV diuresis (7) Pulmonary nodule: Plan: On imaging, 5 mm right middle lobe pulmonary nodule. This is unchanged from 12/13/2022 and should also be reassessed at follow-up. Also notes scattered calcified granulomas follow up CT chest in 3-4 mo rec for patchy/nodular consolidation RLL infectious/inflammatory pneumonitis (8) Anemia: Plan: Hgb 13 range but MCV borderline and was 79.7 on admission Will add iron studies given hypoxia as well/replacement as indicated Plan The patient was discussed with Dr. Lezama at the time of the admission Admission and Anticipated Discharge Date Admission Date: June 13, 2023 Subjective Eval this morning, in room. Reports feeling better/breathing improved. Discussed I suspect multiple components -- he does endorse TRAVIS but unable to tolerate CPAP due to PTSD but able to tolerate nasal cannula without issue. Discussed could consider nasal pillows as untreated sleep apnea contributing to elevated BP as well as arrythmias and heart failure. Was provided hydralazine. Leg edema appears improved and weights improved. Wanting to transfer to [facility] for ongoing care -- says got call for f/u with metal hanger but does not remmeber the name. Also inquired about eliquis use for his afib, dc'd due to bleeding/not being in afib, however he and deny ever having a holter or event monitor and when asked if he knew he was in afib prior he denied ever knowing such. Likely benefit from outpatient event monitor while they are waiting/considering xarelto/coumadin for risk prevention. CM contacting [facility] and will plan for call this afternoon to discuss. No fever/chills. Questions/concerns addressed at this time. Results & Data Results & Data Vital Signs (Past 12 Hours) Vital Signs Temp Pulse Pulse Pulse Resp BP Pulse Ox 06/14/23 03:05 36.7 C 72 24 202/78 H 93 06/13/23 23:38 48 L 06/13/23 23:06 36.9 C 65 24 192/92 H 92 06/13/23 21:20 60 06/13/23 21:15 06/13/23 19:46 36.8 C 61 36 H 177/65 H 93 O2 Del Method O2 Flow Rate 06/14/23 03:05 Nasal Cannula 2 06/13/23 23:38 06/13/23 23:06 Nasal Cannula 2 06/13/23 21:20 06/13/23 21:15 Nasal Cannula 06/13/23 19:46 Nasal Cannula 2.5 Laboratory Results 06/14/23 06/13/23 06/13/23 Range/Units 03:08 19:58 18:03 WBC 8.24 (4.8-10.8) K/ul RBC 4.98 (4.70-6.10) M/uL Hgb 12.7 L (14.0-18.0) g/dl Hct 40.4 L (42.0-52.0) % MCV 81.1 (80.0-100.0) fL MCH 25.5 (25.0-34.0) pg MCHC 31.4 L (32.0-36.0) g/dL RDW Std Deviation 47.6 H (36.4-46.3) fL RDW Coeff of Shalom 16.4 H (11.5-14.5) % Plt Count 186 (130-400) K/uL MPV 9.8 (9.4-12.4) fL Immature Gran % (Auto) 0.5 % Neut % (Auto) 72.3 % Lymph % (Auto) 18.6 % [place] % (Auto) 6.3 % Eos % (Auto) 1.8 % Baso % (Auto) 0.5 % Neut # (Auto) 5.96 (1.40-6.50) K/uL Lymph # (Auto) 1.53 (1.20-3.40) K/uL [place] # (Auto) 0.52 (0.11-0.59) K/uL Eos # (Auto) 0.15 (0.00-0.50) K/uL Baso # (Auto) 0.04 (0.00-0.20) K/uL Immature Gran # (Auto) 0.04 (0.01-0.20) K/uL PT (9.0-12.0) Seconds INR (0.9-1.1) APTT (21-31) Seconds PTT Ratio Sodium 141 (136-145) mmol/L Potassium 3.4 L (3.5-5.1) mmol/L Chloride 98 (98-107) mmol/L Carbon Dioxide 34 H (21-32) mmol/L Anion Gap 9 (3-11) BUN 16 (6-23) mg/dl Creatinine 1.25 (0.6-1.4) mg/dl Est Cr Clr Drug Dosing 57.2 ml/min Est GFR ( Amer) 64.0 ml/min Est GFR (Non-Af Amer) 55.2 ml/min BUN/Creatinine Ratio 12.8 (10-20) Glucose 134 H (70-99(Fasting)) mg/dl POC Glucose 121 H 106 H (70-99) mg/dl Calcium 8.5 L (8.6-10.3) mg/dl Magnesium 1.5 L (1.7-2.4) mg/dl Total Bilirubin (0.2-1.0) mg/dl AST (13-39) U/L ALT (7-52) U/L Alkaline Phosphatase (34-104) U/L Troponin I High Sens (0-20) pg/ml B-Natriuretic Peptide (0-100) pg/ml Total Protein (6.0-8.3) gm/dl Albumin (3.4-5.0) gm/dl Globulin (2.5-4.0) gm/dl Albumin/Globulin Ratio (0.9-2) Procalcitonin (0-0.5) ng/ml Urine Color Urine Appearance (Clear) Urine pH (4.5-7.5) Ur Specific [place] (1.000-1.030) Urine Protein (Negative) Urine Glucose (UA) (Negative) Urine Ketones (Negative) Urine Blood (Negative) Urine Nitrite (Negative) Urine Bilirubin (Negative) Urine Urobilinogen (Negative) Ur Leukocyte Esterase (Negative) Urine WBC (Auto) (0-5) /hpf Urine RBC (Auto) (0-2) /hpf U Hyaline Cast (Auto) (0-2) /lpf U Epithel Cells (Auto) (0-2) /hpf Urine Bacteria (Auto) (None Seen) Adenovirus (PCR) (NotDetected) B. pertussis DNA (PCR) (NotDetected) B.parapertussis DNA PCR (NotDetected) C. pneumoniae DNA (PCR) (NotDetected) Coronavirus OC43 (PCR) (NotDetected) Coronavirus HKU1 (PCR) (NotDetected) Coronavirus 229E (PCR) (NotDetected) SARS-CoV-2 (PCR) (NotDetected) Coronavirus NL63 (PCR) (NotDetected) Human Metapneumovir PCR (NotDetected) Influenza Type A (PCR) (NotDetected) Influenza Type B (PCR) (NotDetected) M. pneumoniae (PCR) (NotDetected) Parainfluenza 1 (PCR) (NotDetected) Parainfluenza 2 (PCR) (NotDetected) Parainfluenza 3 (PCR) (NotDetected) Parainfluenza 4 (PCR) (NotDetected) RSV (PCR) (NotDetected) Entero/Rhino (PCR) (NotDetected) 06/13/23 06/13/23 06/13/23 Range/Units 14:29 13:05 11:42 WBC 9.28 (4.8-10.8) K/ul RBC 5.22 (4.70-6.10) M/uL Hgb 13.2 L (14.0-18.0) g/dl Hct 41.6 L (42.0-52.0) % MCV 79.7 L (80.0-100.0) fL MCH 25.3 (25.0-34.0) pg MCHC 31.7 L (32.0-36.0) g/dL RDW Std Deviation 46.5 H (36.4-46.3) fL RDW Coeff of Shalom 16.3 H (11.5-14.5) % Plt Count 183 (130-400) K/uL MPV 9.4 (9.4-12.4) fL Immature Gran % (Auto) 0.3 % Neut % (Auto) 72.6 % Lymph % (Auto) 18.9 % [place] % (Auto) 6.1 % Eos % (Auto) 1.8 % Baso % (Auto) 0.3 % Neut # (Auto) 6.73 H (1.40-6.50) K/uL Lymph # (Auto) 1.75 (1.20-3.40) K/uL [place] # (Auto) 0.57 (0.11-0.59) K/uL Eos # (Auto) 0.17 (0.00-0.50) K/uL Baso # (Auto) 0.03 (0.00-0.20) K/uL Immature Gran # (Auto) 0.03 (0.01-0.20) K/uL PT 11.9 (9.0-12.0) Seconds INR 1.1 (0.9-1.1) APTT 29 (21-31) Seconds PTT Ratio 1.0 Sodium 139 (136-145) mmol/L Potassium 3.9 (3.5-5.1) mmol/L Chloride 100 (98-107) mmol/L Carbon Dioxide 33 H (21-32) mmol/L Anion Gap 6 (3-11) BUN 14 (6-23) mg/dl Creatinine 1.06 (0.6-1.4) mg/dl Est Cr Clr Drug Dosing 67.8 ml/min Est GFR ( Amer) 78.1 ml/min Est GFR (Non-Af Amer) 67.4 ml/min BUN/Creatinine Ratio 13.2 (10-20) Glucose 102 H (70-99(Fasting)) mg/dl POC Glucose (70-99) mg/dl Calcium 9.3 (8.6-10.3) mg/dl Magnesium (1.7-2.4) mg/dl Total Bilirubin 1.4 H (0.2-1.0) mg/dl AST 15 (13-39) U/L ALT 21 (7-52) U/L Alkaline Phosphatase 83 (34-104) U/L Troponin I High Sens 19.3 (0-20) pg/ml B-Natriuretic Peptide 529 H (0-100) pg/ml Total Protein 6.9 (6.0-8.3) gm/dl Albumin 4.5 (3.4-5.0) gm/dl Globulin 2.4 L (2.5-4.0) gm/dl Albumin/Globulin Ratio 1.9 (0.9-2) Procalcitonin < 0.02 (0-0.5) ng/ml Urine Color Yellow Urine Appearance Clear (Clear) Urine pH 7.5 (4.5-7.5) Ur Specific [place] 1.006 (1.000-1.030) Urine Protein 1+ H (Negative) Urine Glucose (UA) Negative (Negative) Urine Ketones Negative (Negative) Urine Blood Negative (Negative) Urine Nitrite Negative (Negative) Urine Bilirubin Negative (Negative) Urine Urobilinogen Negative (Negative) Ur Leukocyte Esterase Negative (Negative) Urine WBC (Auto) 0-5 (0-5) /hpf Urine RBC (Auto) 0-2 (0-2) /hpf U Hyaline Cast (Auto) 0-2 (0-2) /lpf U Epithel Cells (Auto) 0-2 (0-2) /hpf Urine Bacteria (Auto) None Seen (None Seen) Adenovirus (PCR) Not Detected (NotDetected) B. pertussis DNA (PCR) Not Detected (NotDetected) B.parapertussis DNA PCR Not Detected (NotDetected) C. pneumoniae DNA (PCR) Not Detected (NotDetected) Coronavirus OC43 (PCR) Not Detected (NotDetected) Coronavirus HKU1 (PCR) Not Detected (NotDetected) Coronavirus 229E (PCR) Not Detected (NotDetected) SARS-CoV-2 (PCR) Not Detected (NotDetected) Coronavirus NL63 (PCR) Not Detected (NotDetected) Human Metapneumovir PCR Not Detected (NotDetected) Influenza Type A (PCR) Not Detected (NotDetected) Influenza Type B (PCR) Not Detected (NotDetected) M. pneumoniae (PCR) Not Detected (NotDetected) Parainfluenza 1 (PCR) Not Detected (NotDetected) Parainfluenza 2 (PCR) Not Detected (NotDetected) Parainfluenza 3 (PCR) Not Detected (NotDetected) Parainfluenza 4 (PCR) Not Detected (NotDetected) RSV (PCR) Not Detected (NotDetected) Entero/Rhino (PCR) Not Detected (NotDetected) Diagnostic Findings Chest X-Ray 06/13/23 11:35 XR chest 1V not portable HISTORY: 78 years-old Male Chest pain, nonspecific COMPARISON: 02/23/2015 TECHNIQUE: PA view of the chest FINDINGS: Cardiac silhouette is enlarged. Mild chronic interstitial coarsening of the lung bases. No pneumothorax, pleural effusion, overt pulmonary edema or airspace consolidation. Degenerative changes of the shoulders and spine. IMPRESSION: 1. No acute process. 2. Cardiomegaly with chronic interstitial coarsening. ACT 112: Negative or not required by law. The above report was generated using voice recognition software. It may contain grammatical, syntax or spelling errors. Electronically signed by: Cm Vicente M.D. 06/13/2023 12:47 PM Chest CTA 06/13/23 12:49 CT ANGIOGRAM OF THE CHEST CLINICAL HISTORY: Dyspnea COMPARISON STUDY: Chest x-ray dated 06/13/2023. Abdominal CT dated 12/13/2022. TECHNIQUE: Following the IV administration of 118 cc of Optiray 320, CT angiogram of the chest was performed from the upper abdomen to the thoracic inlet utilizing the pulmonary embolus protocol. Images are reviewed in the axial, sagittal, and coronal planes. 3-D MIPS images are created and assessed. IV contrast was administered without complication. A dose lowering technique was utilized adhering to the principles of ALARA. CT DOSE: 952.7 mGy.cm FINDINGS: Thyroid: Mildly atrophic and heterogeneous. Thoracic aorta: There is moderate atherosclerotic calcification of the thoracic aorta, which is normal in caliber and demonstrates standard 3-vessel arch anatomy. The aorta is not well opacified. Pulmonary vasculature: The pulmonary trunk is normal in caliber. There are no filling defects identified in main, lobar, or segmental pulmonary branches to suggest pulmonary embolus. Heart: The heart is enlarged and without pericardial effusion. There are scattered coronary artery calcifications. Lungs and pleural spaces: There are small pleural effusions with dependent atelectasis. The trachea and central airways are clear. There are mild patchy nodular airspace opacities throughout the right lower lobe. A 5 mm right middle lobe pulmonary nodule is seen on image #96, and a 3 mm right middle lobe nodule is seen on image #104. There are scattered calcified granulomas. Mediastinum: There are scattered subcentimeter mediastinal lymph nodes. These are not pathologically enlarged by size criteria. Hattie: Mildly enlarged hilar nodes measure up to 10 mm in short axis. Axillae: There is no axillary lymphadenopathy. Upper abdomen: The spleen is enlarged measuring 16.1 cm in length. Reflux of contrast into the IVC and hepatic veins suggests cardiac dysfunction. There is a tiny hiatal hernia. Skeletal structures: The skeletal structures are osteopenic. Degenerative change is noted in the shoulders and thoracic spine. No lytic or blastic bony lesions are seen. IMPRESSION: 1. There is no evidence of pulmonary embolus in the main, lobar, or segmental pulmonary arteries. 2. Mild patchy/nodular consolidation in the right lower lobe likely represents an infectious/inflammatory pneumonitis. A follow-up chest CT in 3-4 months time is recommended to document resolution. 3. Cardiomegaly and small pleural effusions. 4. There is a 5 mm right middle lobe pulmonary nodule. This is unchanged from 12/13/2022 and should also be reassessed at follow-up. 5. Splenomegaly. 6. Additional findings as above. ACT 112: Negative or not required by law. Electronically signed by: Rickie Lee M.D. 06/13/2023 1:50 PM PG Care Time/CCT Total # of Minutes Spent Total Time Spent with Patient: Total time spent is greater than 50% in coordination of care (as documented) at patient's floor/unit and/or counseling patient: Coding Diagnoses Hypoxia R09.02 Bradycardia R00.1 CHF exacerbation I50.9 Heart failure type: unspecified PAF (paroxysmal atrial fibrillation) I48.0 DMII (diabetes mellitus, type 2) E11.9 Essential hypertension I10 Pulmonary nodule R91.1 Anemia D64.9 (3) CHF exacerbation Heart failure type: unspecified Qualified Code(s): I50.9 - Heart failure, uns pecified
[2023-06-14] MEDS: MAGNESIUM SULFATE / D5W 1 GM/100 ML BAG IV SCH (08:22)
[2023-06-14] MEDS: ACETAMINOPHEN 325 MG TAB PO PRN (08:22)
[2023-06-14] MEDS: FUROSEMIDE INJ 20 MG/2 ML VIAL IV SCH ×2 (08:23→10:16)
[2023-06-14] MEDS: POTASSIUM CHLORIDE CRTAB 20 MEQ TABCR PO STA (08:23)
[2023-06-14] MEDS: TAMSULOSIN HCL 0.4 MG CAP PO SCH (08:23)
[2023-06-14] MEDS: hydrALAZINE HCL 20 MG/ML VIAL IV PRN (08:23)
[2023-06-14] MEDS: METOPROLOL SUCC 25MG EXT REL TAB PO SCH (08:23)
[2023-06-14] MEDS: PANTOprazole 40 MG TAB PO SCH (08:23)
[2023-06-14 09:35] LABS: Thyroid Stimulating Hormone 5.52 uIu/ml (0.300-4.500)
[2023-06-14 09:41] LABS: Ferritin 15.5 ng/ml (8-388)
[2023-06-14] MEDS ORDERED: IRON SUCROSE 300 MG in SODIUM CHLORIDE 0.9% 250 ML IV SCH (10:00)
[2023-06-14 10:11] LABS: T4 Free Thyroxine 0.86 ng/dl (0.61-1.60)
--- NOTE | 2023-06-14 10:25 | Cardiology Consultation ---
Date of Consultation June 14, 2023 Assessment & Plan (1) CHF exacerbation: (2) Dyspnea: (3) Essential hypertension: (4) Bradycardia: (5) PAF (paroxysmal atrial fibrillation): Plan 1. Dyspnea: He seems to have had an element of mild pulmonary vascular congestion. This was associated some mild lower extremity edema as well. This would be heart failure with preserved ejection fraction. He likely has an element of diastolic dysfunction which is also evidence by his enlarged left atrium. He did have some abnormalities on his chest CT which could represent a competing diagnosis and possibly contributing to dyspnea as well. 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 2. Heart failure with preserved ejection fraction: He seems to be feeling better after some diuresis. He has been ordered additional Lasix today. I think this is reasonable provided we monitor his renal function and electrolytes closely. I do not think he will need much more diuresis. Possibly decompensated secondary to notably elevated blood pressures. 3. Hypertension: Markedly hypertensive the time admission. Probably suboptimal control over all. I think we will stop his metoprolol due to bradycardia. However, he would be a good candidate for amlodipine or possibly a low-dose diuretic such as hydrochlorothiazide. He was mildly hypokalemic at the time of admission we do need to watch his electrolytes closely if hydrochlorothiazide was started. 4. Bradycardia: He is known to have an element of bradycardia. In the past on atenolol he had notably slow heart rates. Unclear if he still taking metoprolol succinate. I think this can be discontinued however. If there is any concern about high rates with atrial fibrillation we could reconsider medical therapy. However, when he was at [facility] he had atrial fibrillation and controlled ventricular rates. I do not think he is overtly symptomatic from the bradycardia. He has Mobitz 1 conduction at rest but appears to have improved conduction with activity which is typical of block at this level. 5. Atrial fibrillation: 1 episode documented at [facility]. He wore an outpatient monitor previously which did not demonstrate any additional episodes. He has not noticed any symptoms. I do not think he would have difficulty with rate control even if he had some atrial fibrillation. Main issue going forward revolves around anticoagulation. He had an adverse reaction to Eliquis (by his report). However, he is considering alternatives. We discussed Xarelto and warfarin. He wishes to discuss these options with his . Either option would be reasonable to prevent strokes. I would continue diuresis and discontinue intravenous Lasix when the renal function seems to decline. He may be a good candidate for hydrochlorothiazide in the outpatient setting both for blood pressure and control of volume. Patient will consider Xarelto or warfarin for anticoagulation Discontinue metoprolol succinate History of Present Illness Reason for Consultation: Hypertension, congestive heart failure, bradycardia Requesting Physician: Burke Attending Physician: Felipe Palacio MD History of Present Illness The patient is a 78-year-old gentleman with a history of hypertension, bradycardia and atrial fibrillation who was admitted to the hospital with symptoms of dyspnea. According to the patient for several days he has been experiencing worsening dyspnea. This is been associated with some mild lower extremity edema. Symptoms are noticeable at rest and with activity. He does not have home pulse oximetry and was unaware of any hypoxia. However, based on the progressive and unrelenting symptoms he presented to the emergency room for evaluation. He was noted to be hypoxic at the time of evaluation. Also severely hypertensive. He was felt to have an element of pulmonary vascular congestion and underwent diuresis and supplemental oxygen was also administered. This morning he states he is feeling much better. He still has some lower extremity edema. He denies any recent constitutional symptoms such as fevers or chills. Some nonproductive coughing. Perhaps some mild orthopnea. He did not describe any sense of palpitations recently. He describes a sense of fuzziness when doing activity on occasion, but did not describe this as presyncope. He has not had symptoms of presyncope and has not experienced syncope. He claims to be compliant with medical therapy. He does his own cooking and reports watching out for too much salt. No change in his diet recently. Allergies Allergy/AdvReac Type Severity Reaction Status Date / Time apixaban [From Eliquis] Allergy Severe Leg Unverified 06/13/23 15:50 swelling and numbness lisinopril Allergy Unknown Verified 06/13/23 15:50 Home Medications Medication Instructions Recorded Confirmed Type ascorbic acid (vitamin C) 250 mg 0 mg PO DAILY 08/02/22 06/13/23 History tablet atorvastatin 80 mg tablet 80 mg PO HS 08/02/22 06/13/23 History carboxymethylcellulose sodium 0.5 0 drp ophthalmic (eye) BID 08/02/22 06/13/23 History % eye drops in a dropperette cholecalciferol (vitamin D3) 25 0 mcg PO DAILY 08/02/22 06/13/23 History mcg (1,000 unit) capsule ferrous sulfate 325 mg (65 mg 0 mg PO DAILY 08/02/22 06/13/23 History iron) tablet glipizide 5 mg tablet 5 mg PO BID 08/02/22 06/13/23 History losartan 100 mg tablet 100 mg PO DAILY 08/02/22 06/13/23 History metformin 1,000 mg tablet 1,000 mg PO BID 08/02/22 06/13/23 History omega 0-xru-sre-fish oil 1,000 mg 0 cap PO DAILY 08/02/22 06/13/23 History (120 mg-180 mg) capsule (Fish Oil) omeprazole 20 mg capsule,delayed 0 mg PO DAILY 08/02/22 06/13/23 History release tamsulosin 0.4 mg capsule (Flomax) 0.4 mg PO BID 08/02/22 06/13/23 History magnesium oxide 420 mg tablet 0 mg PO DAILY 08/22/22 06/13/23 History Saccharomyces boulardii 250 mg 0 mg PO BID 06/13/23 06/13/23 History capsule (Florastor) metoprolol succinate 25 mg 12.5 mg PO DAILY 06/13/23 06/13/23 History tablet,extended release 24 hr Patient History Medical History Diverticulitis PAF (paroxysmal atrial fibrillation) Edema H/O blood clots Sleep apnea Gastro-esophageal reflux Essential hypertension Surgical History H/O tooth extraction Family History Father Myocardial infarction Mother Natural Social History Smoking Status: Never smoker Hx Alcohol Use: No Hx Substance Use: No Communication Ability: Effective Beliefs That Will Affect Care: None marital status: Current Living Situation: Spouse current occupational status: retired How many Children do You have: 3 Feels Safe at Home: Yes caffeine: Yes Dental Care, Regularly: Yes Assistive Devices: Denture - Lower, Glasses and Hearing Aid - Bilateral Review of Systems Review of Systems: Per HPI Physical Exam Physical Exam: The patient is alert and oriented. Mood and affect appeared normal. He answered all questions appropriately. HEENT: Pupils are equal and reactive to light and accommodation. Extraocular movements are intact. The sclerae are anicteric. Neuro: Cranial nerves intact Lungs: Clear to auscultation bilaterally. He has good air movement without use of accessory muscles. No rales wheezes or rhonchi. Cardiac: Irregular rhythm.. Normal S1 and S2. No murmurs on examination. Pulses: The patient has palpable radial pulses bilaterally that are equal in intensity Extremities: There was no evidence of hypoperfusion. There is no cyanosis or clubbing. Mild lower extremity edema Skin: I did not appreciate any rashes on examination today. Results & Data Vital Signs (Past 12 Hours) Vital Signs Temp Pulse Pulse Resp BP BP Pulse Ox 06/14/23 09:50 87 145/74 H 06/14/23 07:58 36.4 C L 77 18 197/100 H 194/94 H 92 06/14/23 07:38 62 06/14/23 03:05 36.7 C 72 24 202/78 H 93 06/13/23 23:38 48 L 06/13/23 23:06 36.9 C 65 24 192/92 H 92 O2 Del Method O2 Flow Rate 06/14/23 09:50 06/14/23 07:58 Nasal Cannula 2 06/14/23 07:38 06/14/23 03:05 Nasal Cannula 2 06/13/23 23:38 06/13/23 23:06 Nasal Cannula 2 Laboratory Results Abnormal Lab Results 06/13/23 06/13/23 06/13/23 11:42 13:05 14:29 WBC 9.28 RBC 5.22 Hgb 13.2 L Hct 41.6 L MCV 79.7 L MCH 25.3 MCHC 31.7 L RDW Std Deviation 46.5 H RDW Coeff of Shalom 16.3 H Plt Count 183 MPV 9.4 Immature Gran % (Auto) 0.3 Neut % (Auto) 72.6 Lymph % (Auto) 18.9 Chambers % (Auto) 6.1 Eos % (Auto) 1.8 Baso % (Auto) 0.3 Neut # (Auto) 6.73 H Lymph # (Auto) 1.75 Chambers # (Auto) 0.57 Eos # (Auto) 0.17 Baso # (Auto) 0.03 Immature Gran # (Auto) 0.03 PT 11.9 INR 1.1 APTT 29 PTT Ratio 1.0 Sodium 139 Potassium 3.9 Chloride 100 Carbon Dioxide 33 H Anion Gap 6 BUN 14 Creatinine 1.06 Est Cr Clr Drug Dosing 67.8 Est GFR ( Amer) 78.1 Est GFR (Non-Af Amer) 67.4 BUN/Creatinine Ratio 13.2 Glucose 102 H POC Glucose Calcium 9.3 Magnesium Iron TIBC Unsaturated IBC Transferrin % Sat Ferritin Total Bilirubin 1.4 H AST 15 ALT 21 Alkaline Phosphatase 83 Troponin I High Sens 19.3 B-Natriuretic Peptide 529 H Total Protein 6.9 Albumin 4.5 Globulin 2.4 L Albumin/Globulin Ratio 1.9 Procalcitonin < 0.02 TSH Free T4 Urine Color Yellow Urine Appearance Clear Urine pH 7.5 Ur Specific [place] 1.006 Urine Protein 1+ H Urine Glucose (UA) Negative Urine Ketones Negative Urine Blood Negative Urine Nitrite Negative Urine Bilirubin Negative Urine Urobilinogen Negative Ur Leukocyte Esterase Negative Urine WBC (Auto) 0-5 Urine RBC (Auto) 0-2 U Hyaline Cast (Auto) 0-2 U Epithel Cells (Auto) 0-2 Urine Bacteria (Auto) None Seen Adenovirus (PCR) Not Detected B. pertussis DNA (PCR) Not Detected B.parapertussis DNA PCR Not Detected C. pneumoniae DNA (PCR) Not Detected Coronavirus OC43 (PCR) Not Detected Coronavirus HKU1 (PCR) Not Detected Coronavirus 229E (PCR) Not Detected SARS-CoV-2 (PCR) Not Detected Coronavirus NL63 (PCR) Not Detected Human Metapneumovir PCR Not Detected Influenza Type A (PCR) Not Detected Influenza Type B (PCR) Not Detected M. pneumoniae (PCR) Not Detected Parainfluenza 1 (PCR) Not Detected Parainfluenza 2 (PCR) Not Detected Parainfluenza 3 (PCR) Not Detected Parainfluenza 4 (PCR) Not Detected RSV (PCR) Not Detected Entero/Rhino (PCR) Not Detected 06/13/23 06/13/23 06/14/23 18:03 19:58 03:08 WBC 8.24 RBC 4.98 Hgb 12.7 L Hct 40.4 L MCV 81.1 MCH 25.5 MCHC 31.4 L RDW Std Deviation 47.6 H RDW Coeff of Shalom 16.4 H Plt Count 186 MPV 9.8 Immature Gran % (Auto) 0.5 Neut % (Auto) 72.3 Lymph % (Auto) 18.6 Chambers % (Auto) 6.3 Eos % (Auto) 1.8 Baso % (Auto) 0.5 Neut # (Auto) 5.96 Lymph # (Auto) 1.53 Chambers # (Auto) 0.52 Eos # (Auto) 0.15 Baso # (Auto) 0.04 Immature Gran # (Auto) 0.04 PT INR APTT PTT Ratio Sodium 141 Potassium 3.4 L Chloride 98 Carbon Dioxide 34 H Anion Gap 9 BUN 16 Creatinine 1.25 Est Cr Clr Drug Dosing 57.2 Est GFR ( Amer) 64.0 Est GFR (Non-Af Amer) 55.2 BUN/Creatinine Ratio 12.8 Glucose 134 H POC Glucose 106 H 121 H Calcium 8.5 L Magnesium 1.5 L Iron 56 TIBC 413 Unsaturated IBC 357 H Transferrin % Sat 14 L Ferritin 15.5 Total Bilirubin AST ALT Alkaline Phosphatase Troponin I High Sens B-Natriuretic Peptide Total Protein Albumin Globulin Albumin/Globulin Ratio Procalcitonin TSH 5.520 H Free T4 0.86 Urine Color Urine Appearance Urine pH Ur Specific [place] Urine Protein Urine Glucose (UA) Urine Ketones Urine Blood Urine Nitrite Urine Bilirubin Urine Urobilinogen Ur Leukocyte Esterase Urine WBC (Auto) Urine RBC (Auto) U Hyaline Cast (Auto) U Epithel Cells (Auto) Urine Bacteria (Auto) Adenovirus (PCR) B. pertussis DNA (PCR) B.parapertussis DNA PCR C. pneumoniae DNA (PCR) Coronavirus OC43 (PCR) Coronavirus HKU1 (PCR) Coronavirus 229E (PCR) SARS-CoV-2 (PCR) Coronavirus NL63 (PCR) Human Metapneumovir PCR Influenza Type A (PCR) Influenza Type B (PCR) M. pneumoniae (PCR) Parainfluenza 1 (PCR) Parainfluenza 2 (PCR) Parainfluenza 3 (PCR) Parainfluenza 4 (PCR) RSV (PCR) Entero/Rhino (PCR) 06/14/23 08:17 WBC RBC Hgb Hct MCV MCH MCHC RDW Std Deviation RDW Coeff of Shalom Plt Count MPV Immature Gran % (Auto) Neut % (Auto) Lymph % (Auto) Chambers % (Auto) Eos % (Auto) Baso % (Auto) Neut # (Auto) Lymph # (Auto) Chambers # (Auto) Eos # (Auto) Baso # (Auto) Immature Gran # (Auto) PT INR APTT PTT Ratio Sodium Potassium Chloride Carbon Dioxide Anion Gap BUN Creatinine Est Cr Clr Drug Dosing Est GFR ( Amer) Est GFR (Non-Af Amer) BUN/Creatinine Ratio Glucose POC Glucose 120 H Calcium Magnesium Iron TIBC Unsaturated IBC Transferrin % Sat Ferritin Total Bilirubin AST ALT Alkaline Phosphatase Troponin I High Sens B-Natriuretic Peptide Total Protein Albumin Globulin Albumin/Globulin Ratio Procalcitonin TSH Free T4 Urine Color Urine Appearance Urine pH Ur Specific [place] Urine Protein Urine Glucose (UA) Urine Ketones Urine Blood Urine Nitrite Urine Bilirubin Urine Urobilinogen Ur Leukocyte Esterase Urine WBC (Auto) Urine RBC (Auto) U Hyaline Cast (Auto) U Epithel Cells (Auto) Urine Bacteria (Auto) Adenovirus (PCR) B. pertussis DNA (PCR) B.parapertussis DNA PCR C. pneumoniae DNA (PCR) Coronavirus OC43 (PCR) Coronavirus HKU1 (PCR) Coronavirus 229E (PCR) SARS-CoV-2 (PCR) Coronavirus NL63 (PCR) Human Metapneumovir PCR Influenza Type A (PCR) Influenza Type B (PCR) M. pneumoniae (PCR) Parainfluenza 1 (PCR) Parainfluenza 2 (PCR) Parainfluenza 3 (PCR) Parainfluenza 4 (PCR) RSV (PCR) Entero/Rhino (PCR) Diagnostic Findings Chest CTA On 06/13/2023: No pulmonary embolus. Patchy nodular consolidation in the right lower lobe. Splenomegaly. Cardiomegaly. Small pleural effusion. Echocardiogram performed 06/13/2023: Normal LV systolic function with ejection fraction of 60 65%. Moderately dilated left atrium. Normal right ventricular systolic pressure. ECG Additional Comments: On 06/13/2023: Normal sinus rhythm with Mobitz 1 conduction. Incomplete right bundle branch block PG Care Time/CCT Total # of Minutes Spent Total Time Spent with Patient: Total time spent is greater than 50% in coordination of care (as documented) at patient's floor/unit and/or counseling patient: Coding Level of Care Code 09817 INT INP/OBS CARE 3/75MIN Diagnoses CHF exacerbation I50.9 Heart failure type: unspecified Dyspnea R06.00 Essential hypertension I10 Bradycardia R00.1 PAF (paroxysmal atrial fibrillation) I48.0 (1) CHF exacerbation Heart failure type: unspecified Qualified Code(s): I50.9 - Heart failure, unspecified
--- NOTE | 2023-06-14 12:19 | Discharge Summary ---
Date of Service June 14, 2023 Admission HPI Per Admitting Provider Gerald is a 78 year old male with a PMH significant for HTN, afib (not on anticoagulation), TRAVIS, hyperlipidemia, and DMII who presented to the [facility] ED on 06/13/23 with a chief complaint of SOB. He was noted to be hypertensive at 192/108, hypoxic at 84% on RA, bradycardic with HR in the 40-50's and afebrile. Labs were significant for a BNP of 529 (no previous to compare) and high sen trop WNL. Chest xray was read as "1. No acute process. 2. Cardiomegaly with chronic interstitial coarsening. ". CTA of the chest was read as "1. There is no evidence of pulmonary embolus in the main, lobar, or segmental pulmonary art eries. 2. Mild patchy/nodular consolidation in the right lower lobe likely represents an infectious/inflammatory pneumonitis. A follow-up chest CT in 3-4 months time is recommended to document resolution. 3. Cardiomegaly and small pleural effusions. 4. There is a 5 mm right middle lobe pulmonary nodule. This is unchanged from 12/13/2022 and should also be reassessed at follow-up. 5. Splenomegaly. 6. Additional findings as above.". Prior to admission the patient was given 40 mg IV lasix and 0.4 mg SL nitroglycerin. At the time of the exam the patient was sitting in bed in no acute distress w ith his bedside, history was obtained from both. Has been experiencing progressive BL LE swelling and SOB at rest and with exertion over the past week. Has been experiencing a non-productive cough over the same time span. Denies recent fever, chills, chest pain, hemoptysis, nausea, vomiting, diarrhea, dysuria, hematuria, melena, or recent trauma. When asked, his states that he uses salt at most meals. He is not on diuretic therapy at home. Was diagnosed with TRAVIS but his PTSD from [place] prevents him from using HS CPAP. Worked in [employer] for approximately 27 years. 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 He is a DNR/DNI and his is his POA. Please refer to Dr. Lezama's attestation for any changes to the treatment plan Admission Exam Per Admitting Provider Physical Exam: General: In no acute distress, stated age, morbidly obese, chronically ill appearing but non-toxic HEENT: Normocephalic, atraumatic, no scleral icterus, pupils around round, symmetrical, and reactive to light, +JVD, moist mucus membranes, trachea midline, no thyromegaly Chest/Pulm: Mild respiratory distress when standing to use the bedside urinal, improves with rest, symmetrical chest expansion, rhonchi noted in the RLL with decreased breath sounds in the LLL, scattered expiratory wheezing in all other gross Cardiac: bradycardic rate, regular rhythm, no murmurs noted Abdomen: Negative for ascites and bruising, normoactive bowel sounds, soft, non- tender to palpation throughout Musculoskeletal: Symmetrical and without signs of acute trauma, upper and lower extremities with full ROM, no atrophy, spasticity, or flaccidity Extremities: Radial, dorsalis pedis, and posterior tibial pulses are intact and symmetrical, 1-2+ pitting edema noted in the BL LE's Skin: Warm, dry, no rashes , lesions, or scars noted Neuro: Alert and oriented to person, place, month, year, and president, no focal defects, no tremors noted Psych: No acute distress, pleasant, calm and cooperative during the exam Principal Diagnosis HFpEF, Volume overload, Hypoxia Discharge Exam General: 78yo male sitting up in chair, at bedside, NAD HEENT: head atraumatic, +facial hair, +thick neck, trachea midline, +JVD Resp: diminished in the bases, scattered wheezing/crackles, on 2L nC, no tachypnea CV: RRR/slightly bradycardic at times, no significant m/r/g, 1+ b/l LE edema, pulses present, calves nontender GI:+BS, obese, slight distension but nontender MSK/Neuro: nonfocal, no slurred speech/facial droop, answering questions Psych: AO, cooperative with exam Discharge Data Allergies Allergy/AdvReac Type Severity Reaction Status Date / Time apixaban [From Eliquis] Allergy Severe Leg Unverified 06/13/23 15:50 swelling and numbness lisinopril Allergy Unknown Verified 06/13/23 15:50 Consultations 06/13/23 14:23 ED Decision to Admit Stat 06/14/23 07:40 Consult Cardiology Routine Ordered Studies Chest X-Ray 06/13/23 11:35 XR chest 1V not portable HISTORY: 78 years-old Male Chest pain, nonspecific COMPARISON: 02/23/2015 TECHNIQUE: PA view of the chest FINDINGS: Cardiac silhouette is enlarged. Mild chronic interstitial coarsening of the lung bases. No pneumothorax, pleural effusion, overt pulmonary edema or airspace consolidation. Degenerative changes of the shoulders and spine. IMPRESSION: 1. No acute process. 2. Cardiomegaly with chronic interstitial coarsening. ACT 112: Negative or not required by law. The above report was generated using voice recognition software. It may contain grammatical, syntax or spelling errors. Electronically signed by: Cm Vicente M.D. 06/13/2023 12:47 PM Chest CTA 06/13/23 12:49 CT ANGIOGRAM OF THE CHEST CLINICAL HISTORY: Dyspnea COMPARISON STUDY: Chest x-ray dated 06/13/2023. Abdominal CT dated 12/13/2022. TECHNIQUE: Following the IV administration of 118 cc of Optiray 320, CT angiogram of the chest was performed from the upper abdomen to the thoracic inlet utilizing the pulmonary embolus protocol. Images are reviewed in the axial, sagittal, and coronal planes. 3-D MIPS images are created and assessed. IV contrast was administered without complication. A dose lowering technique was utilized adhering to the principles of ALARA. CT DOSE: 952.7 mGy.cm FINDINGS: Thyroid: Mildly atrophic and heterogeneous. Thoracic aorta: There is moderate atherosclerotic calcification of the thoracic aorta, which is normal in caliber and demonstrates standard 3-vessel arch anatomy. The aorta is not well opacified. Pulmonary vasculature: The pulmonary trunk is normal in caliber. There are no filling defects identified in main, lobar, or segmental pulmonary branches to suggest pulmonary embolus. Heart: The heart is enlarged and without pericardial effusion. There are scattered coronary artery calcifications. Lungs and pleural spaces: There are small pleural effusions with dependent atelectasis. The trachea and central airways are clear. There are mild patchy nodular airspace opacities throughout the right lower lobe. A 5 mm right middle lobe pulmonary nodule is seen on image #96, and a 3 mm right middle lobe nodule is seen on image #104. There are scattered calcified granulomas. Mediastinum: There are scattered subcentimeter mediastinal lymph nodes. These are not pathologically enlarged by size criteria. Hattie: Mildly enlarged hilar nodes measure up to 10 mm in short axis. Axillae: There is no axillary lymphadenopathy. Upper abdomen: The spleen is enlarged measuring 16.1 cm in length. Reflux of contrast into the IVC and hepatic veins suggests cardiac dysfunction. There is a tiny hiatal hernia. Skeletal structures: The skeletal structures are osteopenic. Degenerative change is noted in the shoulders and thoracic spine. No lytic or blastic bony lesions are seen. IMPRESSION: 1. There is no evidence of pulmonary embolus in the main, lobar, or segmental pulmonary arteries. 2. Mild patchy/nodular consolidation in the right lower lobe likely represents an infectious/inflammatory pneumonitis. A follow-up chest CT in 3-4 months time is recommended to document resolution. 3. Cardiomegaly and small pleural effusions. 4. There is a 5 mm right middle lobe pulmonary nodule. This is unchanged from 12/13/2022 and should also be reassessed at follow-up. 5. Splenomegaly. 6. Additional findings as above. ACT 112: Negative or not required by law. Electronically signed by: Rickie Lee M.D. 06/13/2023 1:50 PM ECHOCARDIOGRAM 06/13/23 The study was technically limited. Left ventricular systolic function is normal. EF 60-65% The left atrium is moderately dilated. Right ventricular systolic pressure is normal Hospital Course (1) Hypoxia: 78-year-old male with past medical history significant for hypertension, paroxysmal A-fib, GERD, diabetes, pulmonary nodule presented with 1 week of progressive bilateral leg swelling and increased shortness of breath and dyspnea on exertion and appeared to have evidence of volume overload on exam with elevated BNP and signs of congestive heart failure on chest x-ray and CTA of the chest. Biofire panel negative, procal not elevated His weights appear to be 109.7 kg on admission and was up to 110 kg in February but was 106 kg in July/November of last year. He was given 40 mg of IV Lasix on admission with good response and placed on Lasix 40 mg IV twice daily moving forward. His weight is down to 106.8 kg today with improvement in his lower extremity edema and swelling. He was also provided IV hydralazine for significant hypertension and I suspect that his significant hypertension and underlying untreated sleep apnea have contributed to his weight gain and volume overload state. He has been taking 25 mg of metoprolol at home but has bradycardia on telemetry and Mobitz 1 block. This was discontinued by cardiology was consulted during admission We are continuing Lasix IV twice daily and I [facility] and consideration for nasal pillows given his prior intolerance to CPAP with mask due to his history of PTSD but has been tolerating nasal cannula for oxygen supplementation while inpatient and is 93% on 2 L prior to discharge. MASON was obtained which showed no wall motion abnormalities and a normal EF. Consistent with heart failure with preserved ejection fraction. CAT scan of the chest was negative for PE but noted reflux of contrast in the IVC and hepatic veins suggestive of cardiac dysfunction. Also notes tiny hiatal hernia He has a history of A-fib but was not on anticoagulation since last year due to reported bleeding from his rectum. Of note he did not know when he was in A-fib in the past and would alondra recommend continued telemetry monitoring TSH was checked as no priors in the system which was slightly elevated but normal T4 and T3. He should have these repeated in follow-up. He also had a magnesium of 1.5 and was given IV replacement and resumed his twice a day oral supplementation. We also checked his iron studies given his MCV is less than 80 and his iron was 40, unsaturated IBC 357 and elevated, transferrin sat 14, and ferritin only 15.5. Patient was ordered dose of Venofer and should likely continue from repletion moving forward. Was discussed with patient and at bedside who would like transfer to the [facility] and was discussed with Candie Rooney from the [facility] regarding his case and bates sportation to be arranged this afternoon. He does also have pneumonitis on chest imaging as well as nodules which will need follow-up. 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 . Recommend continued low-salt diet and monitoring of his weights and urine output. [facility]patient [facility] by the [facility] once stable for discharge from their institution. Hx working in [employer] DVT proph: Lovenox SQ while inpatient (2) Bradycardia: on telemetry, had increased his home metoprolol to 25mg as above, placed further on hold given fidencio/mobitz, cardiology was consulted TSH elevated/T4/t3 wnl -- rec repeat TFT in 6-8wks (3) CHF exacerbation: See hypoxia also suspect degree underlying TRAVIS contributing, orthopnea/prior diagnosis but not able to tolerate CPAP mask however as above tolerating the nasal cannula without issue and likely benefit for discussions for for CPAP w/ nasal pillows (4) PAF (paroxysmal atrial fibrillation): Currently in sinus bradycardia , no on AC as above Mag low, IV replacement ordered and resumed home PO supplementation telemetry monitoring, TFT as above (5) DMII (diabetes mellitus, type 2): Held home meds, placed on SSI while inpatient (6) Essential hypertension: SIGNIFICANT elevations likely causing increased volume overload Losartan/amlodipine on hold while diuresis/avoiding amlodipine w/ swlling Continued metoprolol but stopped as above, hydralazine/lasix as outlined and likely benefit continued hydralazine for BP control and outpt f/u treatment of his TRAVIS (7) Pulmonary nodule: On imaging, 5 mm right middle lobe pulmonary nodule. This is unchanged from 12/13/2022 and should also be reassessed at follow-up. Also notes scattered calcified granulomas follow up CT chest in 3-4 mo rec for patchy/nodular consolidation RLL infectious/inflammatory pneumonitis no fever, procal not elevated (8) Anemia: Hgb 13 range but MCV borderline and was 79.7 on admission iron studies as above, ordered Venofer 300mg IV x 1 prior to transfer however transfer occurring before transfusion. should have f/u and replacement at [facility] Plan transferring patient to [facility] this afternoon for ongoing treatment per patient/family wishes Total Time Total Time Spent Total Time Spent (In Minutes): 90 Discharge Plan Discharge Items Patient Disposition: Transfer [facility] Reason For Visit: HYPOXIA, CHF EXACERBATION Discharge Diagnosis: CHF, volume overload, hypoxia Goals: You have been hospitalized for an acute medical problem. During your stay at [facility], we have made an effort to correct the problem that brought you to the hospital while keeping you as comfortable as possible. Medications were used to bring your condition under control and your discharge instructions will include directions for any medications you should take after leaving the hospital. Please make sure you see your Primary Care Provider as part of your follow up plan. 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 Imaging of the chest was negative for blood clot but I suspect this is from undertreated blood pressure and sleep apnea. You were treated with medications to help pull fluid off and cardiology consulted and transportation has been arranged for the [facility]. Your iron studies were low and you should have replacement in follow up, they can give IV at the [facility]. If you have not had a colonoscopy you should have one for screening. You should continue monitoring your weights/low salt diet and follow up with pul monology and cardiology at discharge from the [facility]. You need follow up on your CT chest finding for ongoing nodules which appear stable but also given your history of working in [employer]. It has been a pleasure being a part of the medical team providing for you while you have been in the hospital. Take care! Pending Studies at Discharge: No Stand-Alone Forms: My [facility] Skilled Items Patient informed of condition?: Yes DNR: Yes Discharge Level of Care: Other Communicable Disease: No Discharge Prognosis: Stable Lines: Peripheral IV Urinary Catheter: No Medications and DC Order Prescriptions: Continued ferrous sulfate 325 mg (65 mg iron) tablet 0 mg PO DAILY Rx Instructions: Unable to verify to verify OTC med with patient/family at this date/time. ascorbic acid (vitamin C) 250 mg tablet 0 mg PO DAILY Rx Instructions: Unable to verify to verify OTC med with patient/family at this date/time. atorvastatin 80 mg tablet 80 mg PO HS carboxymethylcellulose sodium 0.5 % dropperette 0 drp ophthalmic (eye) BID Rx Instructions: Unable to verify medication w/ patient/pharmacy at this date/time. cholecalciferol (vitamin D3) 25 mcg (1,000 unit) capsule 0 mcg PO DAILY Rx Instructions: Unable to verify to verify OTC med with patient/family at this date/time. omega 9-qie-uwn-fish oil [Fish Oil] 1,000 mg (120 mg-180 mg) capsule 0 cap PO DAILY Rx Instructions: Unable to verify to verify OTC med with patient/family at this date/time. glipizide 5 mg tablet 5 mg PO BID losartan 100 mg tablet 100 mg PO DAILY metformin 1,000 mg tablet 1,000 mg PO BID tamsulosin [Flomax] 0.4 mg capsule 0.4 mg PO BID omeprazole 20 mg capsule,delayed release(DR/EC) 0 mg PO DAILY Rx Instructions: Unable to verify to verify OTC med with patient/family at this date/time. magnesium oxide 420 mg tablet 0 mg PO DAILY Rx Instructions: Unable to verify to verify OTC med with patient/family at this date/time. Saccharomyces boulardii [Florastor] 250 mg capsule 0 mg PO BID Rx Instructions: Unable to verify to verify OTC med with patient/family at this date/time. Discontinued metoprolol succinate 25 mg tablet extended release 24 hr 12.5 mg PO DAILY Discharge Orders: Discharge Order (Routine); Ordered 06/14/23 Ordered By: Julianne Ennis/Other Patient Handouts: COPD and Heart Disease, Coping with Heart Failure Admission Data Admit Date/Time: 06/13/23 14:26 Attending Provider: Felipe Palacio Admit Provider: Larry Lezama Primary Care Provider: [facility] Other Providers: Larry Lezama; Nikhil Solo Jr Supervising Physician Co-Signing Physician Notes The patient was not seen by me. The chart was reviewed. Case discussed with MATTIE Reyes. Agree with assessment and plan Coding Level of Care Code 35415 INP/OBS DISCH >30 MIN Diagnoses Hypoxia R09.02 Bradycardia R00.1 CHF exacerbation I50.9 Heart failure type: unspecified PAF (paroxysmal atrial fibrillation) I48.0 DMII (diabetes mellitus, type 2) E11.9 Essential hypertension I10 Pulmonary nodule R91.1 Anemia D64.9
[2023-06-14] MEDS ORDERED: ATORVASTATIN 40 MG TAB PO SCH (21:00)
[2023-06-14] MEDS ORDERED: MAGNESIUM OXIDE 400 MG TAB PO SCH (21:00)
== END 2023-06-14 14:20 | DRG 291 ==
LOC: ED 11:26 → EDINP 14:26 → SUATTDRO 14:26 → 2W 17:15

== ENCOUNTER 2024-11-03 11:57 | Inpatient (IN) ==
[2024-11-03] MEDS: SODIUM CHLORIDE 0.9% 500 ML IV SCH (12:21)
--- NOTE | 2024-11-03 12:32 | XRay Report ---
XR chest 1V portable CLINICAL HISTORY: weakness COMPARISON STUDY: 06/13/2023 FINDINGS: Stable mild cardiomegaly without pulmonary vascular congestion. No consolidation or pleural effusion. No pneumothorax. IMPRESSION: No acute findings. ACT 112: Negative or not required by law. Electronically signed by: Ulisses Bradford M.D. 11/03/2024 12:31 PM
--- NOTE | 2024-11-03 12:46 | Emergency Department Note ---
Impression & Plan Bradycardia, Complete heart block ED Provider Note NAME: DEONNA SUTTON AGE: 79 SEX: M : 1945 ARRIVES VIA: Walk-In INFORMANT: [Patient] ED PROVIDER(S): [Rickie Tierney MD] CHIEF COMPLAINT: DrHaleigh Referred HISTORY OF PRESENT ILLNESS: The patient is a 79-year-old male who presents to the ER at the advice of the [place]. The patient wore a monitor checking his heart last month and, he was called today stating that he had abnormalities and would require potential hospitalization. The patient states that he believes the monitor was done because of some extra beats that were heard. He does not notice any palpitations himself. He has not been short of breath, there has been no chest pain. He feels in baseline health. Patient does take Xarelto for A-fib, he is not on rate limiting medications. PMHx/PSHx/Social Hx: See Below PHYSICAL EXAM: GENERAL: Patient is in no acute distress. HEENT: No acute trauma, normocephalic atraumatic, mucous membranes moist, no nasal congestion. NECK: No stridor, no adenopathy, no meningismus, trachea is midline. LUNGS: Clear to auscultation bilaterally, no wheeze, no rhonchi, breath sounds equal. HEART: Heart tones are quite distant. Rhythm is irregular and bradycardic. No obvious murmur. ABDOMEN: Soft, nontender, no peritonitis. EXTREMITIES: No cyanosis, full range of motion of all the joints without pain or difficulty. NEUROLOGIC: Oriented x 3, no acute motor or sensory deficits, no focal weakness. SKIN: No jaundice, no diaphoresis. DIFFERENTIAL DIAGNOSIS: Lyme disease, dysrhythmia, anemia, electrolyte imbalance, [place], among others. EMERGENCY DEPARTMENT PROCEDURES: MEDICAL DECISION MAKING: There is no leukocytosis or concerning anemia. There is a normal platelet count. No bandemia. No renal failure or significant electrolyte abnormality. No concerning liver enzyme elevation. The patient appears to be in a euthyroid state. ECG shows complete heart block with a rate in the 40s. No ST elevation. Cardiac enzyme testing x 1 is not consistent with acute cardiac injury. Lyme disease testing was negative. Chest x-ray did not show significant cardiomegaly or CHF. On exam, the patient was bradycardic but not hypotensive. He was without complaints. The patient was given a 500 cc saline bolus. I did speak with cardiology. The patient requires a hospital stay, he likely will require a pacemaker. I did speak with the patient and case management, the on-call hospitalist was consulted. Prior/Outside records/notes reviewed: None ECG per my interpretation: Indication was palpitations. ECG shows a complete heart block with a rate of 40. There is a right bundle branch block. No acute ST elevation. There is an old inferior infarct. QTc was 384. Continuous Cardiac Monitoring per my interpretation: An order was placed for continuous cardiac monitoring. The monitor shows a rate of 43 with complete heart block. Imaging/x-ray results per my interpretation: Chest x-ray does not show mediastinal widening, pneumonia or pneumothorax. Chronic Medical/Social conditions affecting care: Advanced age, chronic Xarelto use. Care/Management discussed with: Cardiology-Dr. Park. Case management and the on-call hospitalist. Level of care consideration(s): After review of the information above and other included data: --I believe the patient requires escalation of care to admission Critical Care Note: I have personally spent 41 minutes of critical care time in the direct management of this patient. This includes bedside care, interpretation of diagnostic studies, and testing, discussion with consultants, patient, and family members, and other required patient management activities. This 41 minutes is in excess of all separately billable procedures. DISPOSITION: Admission Past Med/Surg History Problem List (Updated 11/03/24 @ 16:46 by Rickie Tierney MD) Complete heart block (Acute) Bradycardia (Acute) Complete heart block Chronic diastolic CHF (congestive heart failure) Anemia Pulmonary nodule DMII (diabetes mellitus, type 2) Bradycardia CHF exacerbation (Acute) Hypoxia (Acute) Gastro-esophageal reflux Sleep apnea Essential hypertension PAF (paroxysmal atrial fibrillation) Edema Vitamin D deficiency Hyperlipemia Dyspnea Orthopnea Obesity Medical History Diverticulitis H/O blood clots Surgical History H/O tooth extraction Family History Father Myocardial infarction Mother Natural Social History Smoking Status: Former smoker Tobacco Type: Cigarettes Hx Alcohol Use: No Hx Substance Use: No Communication Ability: Effective Beliefs That Will Affect Care: None marital status: Current Living Situation: Spouse current occupational status: retired How many Children do You have: 3 Feels Safe at Home: Yes caffeine: Yes Dental Care, Regularly: Yes Assistive Devices: None Allergies Allergies Allergy/AdvReac Type Severity Reaction Status Date / Time apixaban [From Eliquis] Allergy Severe Leg Unverified 11/03/24 13:30 swelling and numbness lisinopril Allergy Unknown Verified 11/03/24 13:30 Home Meds Home Medications Medication Instructions Recorded Confirmed ascorbic acid (vitamin C) 250 mg 250 mg PO DAILY 08/02/22 11/03/24 tablet atorvastatin 80 mg tablet 80 mg PO HS 08/02/22 11/03/24 cholecalciferol (vitamin D3) 25 25 mcg PO DAILY 08/02/22 11/03/24 mcg (1,000 unit) capsule omega 8-omp-gqr-fish oil 1,000 mg 1 cap PO DAILY 08/02/22 11/03/24 (120 mg-180 mg) capsule (Fish Oil) tamsulosin 0.4 mg capsule (Flomax) 0.4 mg PO BID 08/02/22 11/03/24 ferrous sulfate 325 mg (65 mg 325 mg PO Q OTHER DAY 02/03/24 11/03/24 iron) tablet rivaroxaban 20 mg tablet (Xarelto) 20 mg PO DAILY 02/03/24 11/03/24 clotrimazole 1 % topical cream 1 applic topical BID Athlete's foot 11/03/24 11/03/24 empagliflozin 25 mg-metformin ER 1 tab PO DAILY 11/03/24 11/03/24 1,000 mg tablet,extended release 24hr folic acid 1 mg tablet 1 mg PO DAILY 11/03/24 11/03/24 hydrochlorothiazide 25 mg tablet 25 mg PO DAILY 11/03/24 11/03/24 ketoconazole 2 % topical cream 1 applic topical BID 11/03/24 11/03/24 magnesium 200 mg tablet 400 mg PO TID 11/03/24 11/03/24 sacubitril 97 mg-valsartan 103 mg 1 tab PO BID 11/03/24 11/03/24 tablet (Entresto) urea 20 % topical cream 1 applic topical DAILY PRN Dry Skin 11/03/24 11/03/24 Results & Data (ED) Vital Signs Vital Signs - 24 hr 11/03/24 12:02 11/03/24 12:09 11/03/24 12:24 Temperature 36.6 C Temperature Source Temporal Artery Scan Pulse Rate 53 L 43 L Pulse Rate from SpO2 Sensor Respiratory Rate 24 24 Respiratory Depth Shallow Blood Pressure 154/67 H Blood Pressure Mean 96 Pulse Oximetry 96 96 Oxygen Delivery Method Room Air Room Air Sepsis Recent Fever Within 48 Hours No Sepsis New/Unexplained Change in Mental Status No Sepsis Action Taken by Nursing No Action Required 11/03/24 13:11 11/03/24 13:12 11/03/24 13:54 Temperature Temperature Source Pulse Rate 42 L 48 L 35 L Pulse Rate from SpO2 Sensor 39 L Respiratory Rate 16 19 Respiratory Depth Blood Pressure 154/71 H 160/77 H Blood Pressure Mean 98 104 Pulse Oximetry 97 94 Oxygen Delivery Method Sepsis Recent Fever Within 48 Hours Sepsis New/Unexplained Change in Mental Status Sepsis Action Taken by Long-Term Medications Current Medication List: was personally reviewed by me Laboratory Data Attestation: I reviewed the patient's lab results. 11/03/24 12:20 11/03/24 12:20 Lab Results 11/03/24 Range/Units 12:20 WBC 5.88 (4.8-10.8) K/ul RBC 5.33 (4.70-6.10) M/uL Hgb 13.6 L (14.0-18.0) g/dl Hct 42.7 (42.0-52.0) % MCV 80.1 (80.0-100.0) fL MCH 25.5 (25.0-34.0) pg MCHC 31.9 L (32.0-36.0) g/dL RDW Std Deviation 50.7 H (36.4-46.3) fL RDW Coeff of Shalom 17.9 H (11.5-14.5) % Plt Count 149 (130-400) K/uL MPV 9.4 (9.4-12.4) fL Immature Gran % (Auto) 0.5 % Neut % (Auto) 54.7 % Lymph % (Auto) 33.2 % [place] % (Auto) 7.7 % Eos % (Auto) 3.2 % Baso % (Auto) 0.7 % Neut # (Auto) 3.22 (1.40-6.50) K/uL Lymph # (Auto) 1.95 (1.20-3.40) K/uL [place] # (Auto) 0.45 (0.11-0.59) K/uL Eos # (Auto) 0.19 (0.00-0.50) K/uL Baso # (Auto) 0.04 (0.00-0.20) K/uL Immature Gran # (Auto) 0.03 (0.01-0.20) K/uL Sodium 137 (136-145) mmol/L Potassium 3.5 (3.5-5.1) mmol/L Chloride 98 (98-107) mmol/L Carbon Dioxide 30 (21-32) mmol/L Anion Gap 9 (3-11) BUN 14 (6-23) mg/dl Creatinine 1.11 (0.6-1.4) mg/dl Est Cr Clr Drug Dosing 61.2 ml/min eGFR 67.97 BUN/Creatinine Ratio 12.6 (10-20) Glucose 126 H (70-99(Fasting)) mg/dl Calcium 8.8 (8.6-10.3) mg/dl Magnesium 1.8 (1.7-2.4) mg/dl Total Bilirubin 0.9 (0.2-1.0) mg/dl AST 16 (13-39) U/L ALT 15 (7-52) U/L Alkaline Phosphatase 63 (34-104) U/L Troponin I High Sens 12.9 (0-20) pg/ml Total Protein 6.9 (6.0-8.3) gm/dl Albumin 4.2 (3.4-5.0) gm/dl Globulin 2.7 (2.5-4.0) gm/dl Albumin/Globulin Ratio 1.6 (0.9-2) TSH 3.723 (0.300-4.500) uIu/ml Lyme Disease Screen Negative (Negative) Administered Medications Discontinued Medications Sodium Chloride (Nss) 500 mls @ 999 mls/hr IV .Q31M HONEY Stop: 11/03/24 12:45 Last Infusion: 11/03/24 12:46 Dose: Infused Documented By: Admin: 11/03/24 12:21 Dose: 999 mls/hr Documented By: DEYANIRA Imaging Data Radiologist's Impression: Chest X-Ray 11/03/24 12:10 XR chest 1V portable CLINICAL HISTORY: weakness COMPARISON STUDY: 06/13/2023 FINDINGS: Stable mild cardiomegaly without pulmonary vascular congestion. No consolidation or pleural effusion. No pneumothorax. IMPRESSION: No acute findings. ACT 112: Negative or not required by law. Electronically signed by: Ulisses Bradford M.D. 11/03/2024 12:31 PM Discharge Plan Visit Data Chief Complaint: Referred by Doctor Stated Complaint: HEART AND DOC REFERRED ED Provider: Rickie Tierney Discharge Problem: Bradycardia, Complete heart block Patient Disposition: Admitted As Inpatient Condition: Serious Discharge Instructions Interventions: ED Discharge Assessment Last Done: 11/03/24 15:25
[2024-11-03 12:49] LABS: Hematocrit (blood only) 42.7 % (42.0-52.0); Hemoglobin 13.6 g/dl (14.0-18.0); Immature Granulocytes # (auto) 0.03 K/uL (0.01-0.20); Immature Granulocytes % (auto) 0.5 %; Mean Corpuscular Hemoglobin 25.5 pg (25.0-34.0); Mean Corpuscular Volume 80.1 fL (80.0-100.0); Platelet Count 149 K/uL (130-400); RDW Standard Deviation 50.7 fL (36.4-46.3); Red Blood Count 5.33 M/uL (4.70-6.10); White Blood Count 5.88 K/ul (4.8-10.8)
[2024-11-03 12:59] LABS: Alanine Aminotransferase 15.0 U/L (7-52); Albumin Globulin Ratio 1.6 (0.9-2); Alkaline Phosphatase 63.0 U/L (34-104); Anion Gap 9.0 (3-11); Bilirubin,Total 0.9 mg/dl (0.2-1.0); Blood Urea Nitrogen 14.0 mg/dl (6-23); Calcium 8.8 mg/dl (8.6-10.3); Carbon Dioxide 30.0 mmol/L (21-32); Chloride 98.0 mmol/L (98-107); Creatinine Clr Calc Pharmacy 61.2 ml/min; Globulin 2.7 gm/dl (2.5-4.0); Glucose 126.0 mg/dl (70-99(Fasting)); Magnesium 1.8 mg/dl (1.7-2.4); Potassium 3.5 mmol/L (3.5-5.1); Sodium 137.0 mmol/L (136-145); Total Protein 6.9 gm/dl (6.0-8.3)
[2024-11-03 13:15] LABS: Thyroid Stimulating Hormone 3.723 uIu/ml (0.300-4.500)
--- NOTE | 2024-11-03 13:45 | History & Physical Report ---
Date of Service November 03, 2024 Assessment & Plan (1) Complete heart block: (2) Cellulitis: (3) Chronic diastolic CHF (congestive heart failure): (4) DMII (diabetes mellitus, type 2): (5) PAF (paroxysmal atrial fibrillation): (6) Sleep apnea: Plan 79 y/o with HFpEF and afib, DM2 who is admitted with complete heart block # complete heart block - currently asymptomatic. K/Mag normal, TSH nl, Lyme negative and not on AV nataliya blockers. Presumably progression of conduction system disease reviewed holter monitor report from [facility]. Bradycardic, longest pause was 2 sec. Tracings with CHB. personally reviewed EKG tracing - RBBB, q's in III and aVF, 3rd degree heart block -consult cardiology discussed with Dr. Park. Will have EP consult to consider permanent pacemaker -PCU tele, pacer pads but don't pace unless symotomatic -keep electrolytes normal. continue mag po replacement -AM BMP mag # shallow L prabhakar wound and mild surrounding cellulitis - wood chip hit it when he was chopping wood -ceftriaxone -WON consult, wound care #Chronic HFpEF -continue entresto, hctz, not on b-jose contraindicated #PAF -hold xarelto per cardiology -no AV nataliya blockers #DM type 2 - hold glipizide, metformin. Last A1c 8.8% in July -basal-bolus insulin. Monitor BG TRAVIS - ordered CPAP DVT ppx: held xarelto updated his at bedside History of Present Illness Chief Complaint: [facility] told him to come to ED for arrhythmia Primary Care Provider: [facility] 79 y/o with HFpEF and afib, DM2 who was sent in to the ED by his doctor's office at the [facility] because of heart monitor findings Last month had ambulatory load dispatcher done through the [facility] - done because he had bradycardia, irregular heart beats they noticed in office [facility] reviewed results today - RN called and told him go to the ED. Holter monitor showed complete heart block. Has chronic BECK unchanged, no chest pain, no lightheadedness, no palpitations, no syncope. He is in his USOH. He feels like he could go home. He is on xarelto for afib but not on AV nataliya blockers TSH wnl and Lyme negative He has a left lower prabhakar wound that occurred while he was chopping wood. A wood piece flew off and struck his leg. There is some surrounding redness but not painful and no drainage, no fever. He's been putting bag balm on it. He has chronic LUTS Allergies Allergy/AdvReac Type Severity Reaction Status Date / Time apixaban [From Eliquis] Allergy Severe Leg Unverified 11/03/24 13:30 swelling and numbness lisinopril Allergy Unknown Verified 11/03/24 13:30 Home Medications Medication Instructions Recorded Confirmed Type ascorbic acid (vitamin C) 250 mg 250 mg PO DAILY 08/02/22 11/03/24 History tablet atorvastatin 80 mg tablet 80 mg PO HS 08/02/22 11/03/24 History cholecalciferol (vitamin D3) 25 25 mcg PO DAILY 08/02/22 11/03/24 History mcg (1,000 unit) capsule omega 8-zec-oir-fish oil 1,000 mg 1 cap PO DAILY 08/02/22 11/03/24 History (120 mg-180 mg) capsule (Fish Oil) tamsulosin 0.4 mg capsule (Flomax) 0.4 mg PO BID 08/02/22 11/03/24 History ferrous sulfate 325 mg (65 mg 325 mg PO Q OTHER DAY 02/03/24 11/03/24 History iron) tablet rivaroxaban 20 mg tablet (Xarelto) 20 mg PO DAILY 02/03/24 11/03/24 History clotrimazole 1 % topical cream 1 applic topical BID Athlete's foot 11/03/24 11/03/24 History empagliflozin 25 mg-metformin ER 1 tab PO DAILY 11/03/24 11/03/24 History 1,000 mg tablet,extended release 24hr folic acid 1 mg tablet 1 mg PO DAILY 11/03/24 11/03/24 History hydrochlorothiazide 25 mg tablet 25 mg PO DAILY 11/03/24 11/03/24 History ketoconazole 2 % topical cream 1 applic topical BID 11/03/24 11/03/24 History magnesium 200 mg tablet 400 mg PO TID 11/03/24 11/03/24 History sacubitril 97 mg-valsartan 103 mg 1 tab PO BID 11/03/24 11/03/24 History tablet (Entresto) urea 20 % topical cream 1 applic topical DAILY PRN Dry Skin 11/03/24 11/03/24 History Past Med/Surg History Problem List Cellulitis Complete heart block (Acute) Bradycardia (Acute) Complete heart block Chronic diastolic CHF (congestive heart failure) Anemia Pulmonary nodule DMII (diabetes mellitus, type 2) Bradycardia CHF exacerbation (Acute) Hypoxia (Acute) Gastro-esophageal reflux Sleep apnea Essential hypertension PAF (paroxysmal atrial fibrillation) Edema Vitamin D deficiency Hyperlipemia Dyspnea Orthopnea Obesity Medical History Diverticulitis H/O blood clots Surgical History H/O tooth extraction Family History Father Myocardial infarction Mother Natural Social History Smoking Status: Former smoker Tobacco Type: Cigarettes Hx Alcohol Use: No Hx Substance Use: No Communication Ability: Effective Beliefs That Will Affect Care: None marital status: Current Living Situation: Spouse current occupational status: retired How many Children do You have: 3 Feels Safe at Home: Yes caffeine: Yes Dental Care, Regularly: Yes Assistive Devices: None Review of Systems 2 Review of Systems: All systems reviewed & are unremarkable except as noted in HPI & below Physical Exam 2 Physical Exam: Last 24h vitals reviewed GEN: no acute distress, sitting edge of bed HEENT: pupils equal, sclerae anicteric, moist MM RESP: normal WOB, CTAB CV: reg bradycardic no mrg ABD: soft/nt/nd +BT : no blank SKIN: warm and dry, no generalized rashes Mild ankle/foot edema. L lower prabhakar with shallow 2 cm ulceration anteriorly, surrounding erythema and mild warmth, no drainage NEURO: AOx person, place, and situation. Face symmetric, speech normal, moves 4 ext spontaneously and equally Results & Data Results & Data Vital Signs (Past 12 Hours) Vital Signs Temp Pulse Resp BP Pulse Ox O2 Del Method 11/03/24 13:12 48 L 16 154/71 H 97 11/03/24 13:11 42 L 11/03/24 12:24 43 L 24 96 Room Air 09/09/25 12:09 96 Room Air 11/03/24 12:02 36.6 C 53 L 24 154/67 H Laboratory Results 11/03/24 12:20 11/03/24 12:20 Mag 1.8 LFT wnl Tn 12.9 TSH 3.7 Lyme negative CXR - personally reviewed film and it is clear EKG - personally reviewed tracing - complete heart block PG Care Time/CCT Total # of Minutes Spent Total Time Spent with Patient: Total time spent is greater than 50% in coordination of care (as documented) at patient's floor/unit and/or counseling patient: Coding Level of Care Code 83162 INT INP/OBS CARE 2/55MIN Diagnoses Complete heart block I44.2 Cellulitis L03.90 Chronic diastolic CHF (congestive heart failure) I50.32 DMII (diabetes mellitus, type 2) E11.9 PAF (paroxysmal atrial fibrillation) I48.0 Sleep apnea G47.30
--- NOTE | 2024-11-03 13:54 | Cardiology Consultation ---
Date of Consultation November 03, 2024 Assessment & Plan (1) Complete heart block: -The patient is completely asymptomatic. -No need for a temporary pacemaker. -Okay to leave pacer pads in place, however, would not turn on unless he becomes symptomatic. -Lyme titer is pending. -Will discuss permanent pacemaker with EP service. -Would hold Xarelto. (2) Chronic diastolic CHF (congestive heart failure): -Euvolemic at this time. -Continue Entresto and hydralazine. (3) Essential hypertension: -Adequate control on current regimen. (4) PAF (paroxysmal atrial fibrillation): -Would hold Xarelto in anticipation of a permanent pacemaker. History of Present Illness History of Present Illness Mr. Mckinnon is a 79-year-old male admitted earlier today with asymptomatic, complete heart block. This consultation was ordered to assist in his cardiac management. The patient was in his usual state of health until October 14 when he was seen at the [facility]. An EKG done on that date noted sinus rhythm with complete heart block. Therefore, a 24-hour Holter monitor was placed. This demonstrated sinus rhythm, Mobitz type I and Mobitz type II second-degree AV block, and intermittent complete heart block. The patient was contacted by [facility] team today and told to proceed directly to the emergency room for an evaluation regarding his abnormal heart rhythm. The patient has felt well. He is vigorous on a daily basis caring for his home and property. He has not experienced any syncope, or presyncope. He further denies exertional chest pain, dyspnea, PND, orthopnea, lower extremity edema, and claudication. He does carry history of paroxysmal atrial fibrillation and has been tolerating long-term anticoagulation without difficulty. He has not required any rate controlling medications. Currently, patient is resting comfortably in bed without complaints. His is at the bedside. Past medical and surgical history 1. Hypertension 2. Hypercholesterolemia 3. Paroxysmal atrial fibrillationJune 2022 4. RBBB 5. Diastolic CHFApril 2023 6. Diabetes mellitus 7. GERD 8. Hypothyroidism 9. Chronic renal failure 10. Gout 11. Obesity 12. BPH 13. Hearing deficit 14. 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 Had an AVR. Mother at 92 of "old age." Siblings are alive and well Review of systems A 10 point review of system was undertaken and negative except for that described above. Allergies Allergy/AdvReac Type Severity Reaction Status Date / Time apixaban [From Eliquis] Allergy Severe Leg Unverified 11/03/24 13:30 swelling and numbness lisinopril Allergy Unknown Verified 11/03/24 13:30 Home Medications Medication Instructions Recorded Confirmed Type ascorbic acid (vitamin C) 250 mg 0 mg PO DAILY 08/02/22 08/03/24 History tablet atorvastatin 80 mg tablet 80 mg PO HS 08/02/22 08/03/24 History carboxymethylcellulose sodium 0.5 0 drp ophthalmic (eye) BID 08/02/22 08/03/24 History % eye drops in a dropperette cholecalciferol (vitamin D3) 25 0 mcg PO DAILY 08/02/22 08/03/24 History mcg (1,000 unit) capsule glipizide 5 mg tablet 5 mg PO BID 08/02/22 08/03/24 History metformin 1,000 mg tablet 1,000 mg PO BID 08/02/22 08/03/24 History omega 9-qmf-ors-fish oil 1,000 mg 0 cap PO DAILY 08/02/22 08/03/24 History (120 mg-180 mg) capsule (Fish Oil) omeprazole 20 mg capsule,delayed 0 mg PO DAILY 08/02/22 08/03/24 History release tamsulosin 0.4 mg capsule (Flomax) 0.4 mg PO BID 08/02/22 08/03/24 History Saccharomyces boulardii 250 mg 0 mg PO BID 06/13/23 08/03/24 History capsule (Florastor) ferrous sulfate 325 mg (65 mg 325 mg PO Q OTHER DAY 02/03/24 08/03/24 History iron) tablet hydralazine 10 mg tablet 10 mg PO DAILY 02/03/24 08/03/24 History magnesium oxide 420 mg tablet 420 mg PO BID 02/03/24 08/03/24 History rivaroxaban 20 mg tablet (Xarelto) 20 mg PO DAILY 02/03/24 08/03/24 History sacubitril 49 mg-valsartan 51 mg 1 tab PO BID 02/03/24 08/03/24 History tablet Patient History Medical History Diverticulitis H/O blood clots Surgical History H/O tooth extraction Family History Father Myocardial infarction Mother Natural Social History Smoking Status: Former smoker Tobacco Type: Cigarettes Hx Alcohol Use: No Hx Substance Use: No Communication Ability: Effective Beliefs That Will Affect Care: None marital status: Current Living Situation: Spouse current occupational status: retired How many Children do You have: 3 Feels Safe at Home: Yes caffeine: Yes Dental Care, Regularly: Yes Assistive Devices: None Physical Exam Physical Exam: In general this is an obese male in no acute distress. HEENT exam is negative. Neck is supple with full carotid upstrokes. No carotid bruits. No JVD. No thyromegaly. Cardiovascular exam reveals a regular rhythm with distant heart sounds. No obvious murmurs. Lungs are clear without rales, rhonchi or wheezes. Abdomen is soft and nontender without bruits. Extremities reveal intact radial artery pulses bilaterally. Trace pretibial edema is noted. Results & Data Vital Signs (Past 12 Hours) Vital Signs Temp Pulse Resp BP Pulse Ox O2 Del Method 11/03/24 13:12 48 L 16 154/71 H 97 11/03/24 13:11 42 L 11/03/24 12:24 43 L 24 96 Room Air 11/03/24 12:09 96 Room Air 11/03/24 12:02 36.6 C 53 L 24 154/67 H PG Care Time/CCT Total # of Minutes Spent Total Time Spent with Patient: Total time spent is greater than 50% in coordination of care (as documented) at patient's floor/unit and/or counseling patient: Coding Level of Care Code 57266 INT INP/OBS CARE 3/75MIN Diagnoses Complete heart block I44.2 Chronic diastolic CHF (congestive heart failure) I50.32 Essential hypertension I10 PAF (paroxysmal atrial fibrillation) I48.0
--- NOTE | 2024-11-03 14:49 | Electrocardiogram Report ---
Test Reason : Blood Pressure : */* mmHG Vent. Rate : 40 BPM Atrial Rate : * BPM P-R Int : * ms QRS Dur : 130 ms QT Int : 472 ms P-R-T Axes : * -15 -15 degrees QTcB Int : 384 ms Sinus rhythm with complete heart block idioventricular escape rhythm Right bundle branch block Inferior infarct , age undetermined T wave abnormality, consider lateral ischemia Abnormal ECG When compared with ECG of 13-Jun-2023 11:45, Significant changes have occurred Confirmed by Ollie Park ([id number]) on 11/03/2024 2:48:47 PM Referred By: REFERRED SELF Confirmed By: Ollie Park
[2024-11-03] MEDS ORDERED: CARBOHYDRATES FOR HYPOGLYCEMIA PO PRN (15:21)
[2024-11-03] MEDS ORDERED: GLUCOSE 10 TAB/TUBE PO PRN (15:21)
[2024-11-03] MEDS ORDERED: MAGNESIUM HYDROXIDE SUSP 30 ML UDC PO PRN (15:21)
[2024-11-03] MEDS ORDERED: GLUCOSE 40% GEL 15 GM TUBE PO PRN (15:21)
[2024-11-03] MEDS ORDERED: ONDANSETRON INJ 2 MG/ML 2 ML VIAL IV PRN (15:21)
[2024-11-03] MEDS ORDERED: MELATONIN 3 MG TAB PO PRN (15:21)
[2024-11-03] MEDS ORDERED: GLUCAGON FOR INJ 1 MG VIAL SQ PRN (15:21)
[2024-11-03] MEDS ORDERED: POLYETHYLENE (MIRALAX) 17 GM PACK PO PRN (15:21)
[2024-11-03] MEDS ORDERED: DEXTROSE 50% 50 ML SYRINGE IV PRN (15:21)
[2024-11-03] MEDS ORDERED: ALUMINUM/MAGNESIUM SUSP 30 ML UDC PO PRN (15:21)
[2024-11-03] MEDS: cefTRIAXone SODIUM 2,000 MG/50 ML BAG IV SCH (18:20)
[2024-11-03] MEDS: INSULIN ASPART PER UNIT CHARGE SC SCH (18:20)
[2024-11-03] MEDS: hydrALAZINE 10 MG TAB PO SCH (18:26)
[2024-11-03] MEDS: RIVAROXABAN 20 MG TAB PO SCH (18:26)
[2024-11-03] MEDS: ARTIFICIAL TEARS OP SCH (18:27)
[2024-11-03] MEDS: ATORVASTATIN 40 MG TAB PO SCH (21:11)
[2024-11-03] MEDS: MAGNESIUM OXIDE 400 MG TAB PO SCH (21:12)
[2024-11-03] MEDS: VALSARTAN/SACUBITRIL 51/49 MG TAB PO SCH (21:12)
[2024-11-03] MEDS: TAMSULOSIN HCL 0.4 MG CAP PO SCH (21:12)
[2024-11-04] MEDS ORDERED: Nursing to Pharmacy Communication SCH (07:45)
[2024-11-04] MEDS: LANTUS PER UNIT CHARGE SQ SCH (09:39)
--- NOTE | 2024-11-04 12:03 | Cardiology Progress Note ---
Date of Service November 04, 2024 Assessment & Plan (1) Complete heart block: Plan: -Remains asymptomatic. -No need for a temporary pacemaker. -Lyme titer is negative. -Permanent pacemaker with Dr. Mueller tomorrow. -Would hold Xarelto. -Please keep n.p.o. after midnight. (2) Chronic diastolic CHF (congestive heart failure): Plan: -Euvolemic at this time. -Continue Entresto and hydralazine. (3) Essential hypertension: Plan: -Adequate control on current regimen. (4) PAF (paroxysmal atrial fibrillation): Plan: -Hold Xarelto in anticipation of a permanent pacemaker. Admission and Anticipated Discharge Date Admission Date: November 03, 2024 Subjective The patient is resting comfortably in bed without complaints of chest pain, dyspnea, syncope, or presyncope. We have discussed the need for a permanent pacemaker. His is at the bedside. Physical Exam Physical Exam: In general this is an obese male in no acute distress. HEENT exam is negative. Neck is supple with full carotid upstrokes. No carotid bruits. No JVD. No thyromegaly. Cardiovascular exam reveals a regular rhythm with distant heart sounds. No obvious murmurs. Lungs are clear without rales, rhonchi or wheezes. Abdomen is soft and nontender without bruits. Extremities reveal intact radial artery pulses bilaterally. Trace pretibial edema is noted. Results & Data Vital Signs (Past 12 Hours) Vital Signs Temp Pulse Resp BP Pulse Ox O2 Del Method 11/04/24 08:00 36.5 C 50 L 18 140/71 96 Room Air 11/04/24 03:21 36.3 C L 46 L 20 142/83 H 95 Room Air Diagnostic Findings cell operator notes sinus rhythm with 2-1 AV block. PG Care Time/CCT Total # of Minutes Spent Total Time Spent with Patient: Total time spent is greater than 50% in coordination of care (as documented) at patient's floor/unit and/or counseling patient: Coding Level of Care Code 29090 SUB INP/OBS CARE 3/50MIN Diagnoses Complete heart block I44.2 Chronic diastolic CHF (congestive heart failure) I50.32 Essential hypertension I10 PAF (paroxysmal atrial fibrillation) I48.0
[2024-11-04] MEDS: INSULIN ASPART PER UNIT CHARGE SC SCH (12:39)
--- NOTE | 2024-11-04 15:44 | Electrocardiogram Report ---
Test Reason : Blood Pressure : */* mmHG Vent. Rate : 41 BPM Atrial Rate : * BPM P-R Int : * ms QRS Dur : 130 ms QT Int : 502 ms P-R-T Axes : * -5 55 degrees QTcB Int : 414 ms Normal sinus rhythm with 2:1 A-V conduction Right bundle branch block Abnormal ECG When compared with ECG of 03-Nov-2024 12:11, Significant changes have occurred Confirmed by Ollie Park ([id number]) on 11/04/2024 3:44:08 PM Referred By: REFERRED SELF Confirmed By: Ollie Park
--- NOTE | 2024-11-04 16:07 | Hospitalist Progress Note ---
Date of Service November 04, 2024 Assessment & Plan (1) Complete heart block: (2) Cellulitis: (3) Chronic diastolic CHF (congestive heart failure): (4) DMII (diabetes mellitus, type 2): (5) PAF (paroxysmal atrial fibrillation): (6) Sleep apnea: Plan 79 y/o with HFpEF and afib, DM2 who is admitted with complete heart block # complete heart block - currently asymptomatic. Rhythm inherently unstable but tolerating. K/Mag normal, TSH nl, Lyme negative and not on AV nataliya blockers. Presumably progression of conduction system disease reviewed holter monitor report from [facility]. Bradycardic, longest pause was 2 sec. Tracings with CHB. personally reviewed EKG tracing - RBBB, q's in III and aVF, 3rd degree heart block -consulted cardiology -PCU tele, pacer pads but don't pace unless symotomatic -keep electrolytes normal. continue mag po replacement -EKG today RBBB and 3rd degree heart block -AM BMP mag -per cardiology to have pacemaker tomorrow, npo p midnight # shallow L prabhakar wound and mild surrounding cellulitis - wood chip hit it when he was chopping wood -ceftriaxone -WON consult, wound care #Chronic HFpEF -continue entresto, hctz, not on b-jose contraindicated #PAF -hold xarelto per cardiology -no AV nataliya blockers #DM type 2 - hold glipizide, metformin. Last A1c 8.8% in July -basal-bolus insulin. Monitor BG TRAVIS - ordered CPAP DVT ppx: held xarelto Discussed plan with bedside snuff grinder and Anticipated Discharge Date Admission Date: November 03, 2024 Subjective Sleeping but I woke him up briefly Bradycardic but remains asx without lightheadedness, dyspnea, CP Physical Exam 2 Physical Exam: Last 24h vitals reviewed GEN: no acute distress, sleeping on side but aroused briefly HEENT: pupils equal, sclerae anicteric, moist MM RESP: normal WOB, CTAB CV: reg bradycardic no mrg ABD: soft/nt/nd +BT : no blank SKIN: warm and dry, no generalized rashes Yesterday exam: Mild ankle/foot edema. L lower prabhakar with shallow 2 cm ulceration anteriorly, surrounding erythema and mild warmth, no drainage NEURO: AOx person, place, and situation. Face symmetric, speech normal, moves 4 ext spontaneously and equally Results & Data Results & Data Vital Signs (Past 12 Hours) Vital Signs Temp Pulse Pulse Resp BP Pulse Ox O2 Del Method 11/04/24 14:28 45 L 114/48 L 11/04/24 12:00 36.8 C 63 16 130/68 97 Room Air 11/04/24 08:00 36.5 C 50 L 18 140/71 96 Room Air 11/04/24 07:00 48 L Laboratory Results 11/03/24 12:20 11/03/24 12:20 PG Care Time/CCT Total # of Minutes Spent Total Time Spent with Patient: Total time spent is greater than 50% in coordination of care (as documented) at patient's floor/unit and/or counseling patient: Coding Level of Care Code 22719 SUB INP/OBS CARE 3/50MIN Diagnoses Complete heart block I44.2 Cellulitis L03.90 Chronic diastolic CHF (congestive heart failure) I50.32 DMII (diabetes mellitus, type 2) E11.9 PAF (paroxysmal atrial fibrillation) I48.0 Sleep apnea G47.30
[2024-11-05 07:31] LABS: Anion Gap 10.0 (3-11); Blood Urea Nitrogen 17.0 mg/dl (6-23); Calcium 8.7 mg/dl (8.6-10.3); Carbon Dioxide 28.0 mmol/L (21-32); Chloride 102.0 mmol/L (98-107); Creatinine Clr Calc Pharmacy 55.8 ml/min; Glucose 147.0 mg/dl (70-99(Fasting)); Magnesium 1.9 mg/dl (1.7-2.4); Potassium 3.5 mmol/L (3.5-5.1); Sodium 140.0 mmol/L (136-145)
--- NOTE | 2024-11-05 09:35 | Pre Anesthesia Assessment ---
Date of Service November 05, 2024 Pre Sedation Assessment Vital Signs Temp Pulse Pulse Resp BP Pulse Ox O2 Del Method 11/05/24 09:27 Room Air 11/05/24 07:32 36.9 C 102 H 20 109/71 93 Room Air 11/05/24 02:54 36.7 C 55 L 18 168/56 H 94 Room Air 11/04/24 23:29 36.8 C 45 L 18 184/70 H 95 Room Air 11/04/24 21:58 49 L 11/04/24 19:58 36.5 C 50 L 20 170/76 H 97 Room Air 11/04/24 16:06 36.4 C L 46 L 18 118/48 L 94 Room Air 11/04/24 14:28 45 L 114/48 L 11/04/24 12:00 36.8 C 63 16 130/68 97 Room Air Cardiovascular + bradycardic Respiratory + respiratory effort normal Pre-Sedation Airway Assessment Smoking Status: Former smoker Hx Sleep Apnea: Yes Hx Difficult Intubation: No Short, Thick Neck: No Thyromental Distance: > or= 3.5 Finger Breadths Oral Cavity: + WNL Mallampati Class: III ASA: ASA3 Procedure Planning Contraindications for Sedation: none Current Medications Reviewed: Yes Notes The planned sedation has been discussed with the patient. Informed Consent was obtained. I have identified the patient, determined the appropriateness of sedation and have assessed the patient immediately prior to the procedure. All medicine(s) and interventions are by my order.
[2024-11-05] MEDS: WATER, STERILE FOR INJ 10 ML VIAL ONE (10:52)
[2024-11-05] MEDS: VANCOMYCIN HCL 1000MG/20ML VIAL ONE (10:52)
[2024-11-05] MEDS: ceFAZolin 330 MG/ML 1 GM VIAL ONE (10:52)
[2024-11-05] MEDS: BUPIVACAINE 0.25% PF 30 ML VIAL ONE (10:52)
[2024-11-05] MEDS: LIDOCAINE 1% LOCAL 20 ML VIAL ONE (10:52)
[2024-11-05] MEDS: MIDAZOLAM HCL 5 MG/ML 1 ML VIAL ONE (11:21)
--- NOTE | 2024-11-05 11:28 | Post Anesthesia Assessment ---
Date of Service November 05, 2024 Post Sedation Assessment Vital Signs Temp Pulse Pulse Resp BP BP Pulse Ox 11/05/24 10:01 57 L 14 178/78 H 95 11/05/24 09:27 11/05/24 07:32 36.9 C 102 H 20 109/71 93 11/05/24 02:54 36.7 C 55 L 18 168/56 H 94 11/04/24 23:29 36.8 C 45 L 18 184/70 H 95 11/04/24 21:58 49 L 11/04/24 19:58 36.5 C 50 L 20 170/76 H 97 11/04/24 16:06 36.4 C L 46 L 18 118/48 L 94 11/04/24 14:28 45 L 114/48 L 11/04/24 12:00 36.8 C 63 16 130/68 97 O2 Del Method 11/05/24 10:01 Room Air 11/05/24 09:27 Room Air 11/05/24 07:32 Room Air 11/05/24 02:54 Room Air 11/04/24 23:29 Room Air 11/04/24 21:58 11/04/24 19:58 Room Air 11/04/24 16:06 Room Air 11/04/24 14:28 11/04/24 12:00 Room Air Recovery Score Activity: Moves 4 extremities Respiration: Deep Breath/Cough Circulation: +/-20% PreAnes Value Consciousness: Fully Awake Oxygen Saturation: > 92% On Room Air Discharge Sedation Level of Care: Fast Track Phase II Post Sedation Plan On clinical assessment, the patient appears to have tolerated the sedation without complications. Patient is recovering as anticipated. Patient will continue to be monitored by nursing and may be discharged when sedation discharge criteria are met per below protocol. Upon Completions of procedure up to 15 minutes continue every 5 minute vital signs and the P.A.R. score; then discharge to a Phase I or Fast Track to Phase II per the following guidelines: * Discharge Patient to appropriate Phase II area if PAR is 8 or greater or return to pre- procedure baseline. The post - procedure orders will be as directed. * If PAR score is less than 8 or not return to pre-procedure baseline then patient will follow Phase I monitoring till PAR is reached for Phase II. The Phase I may be done in procedure room or may call to secure a Phase I area. * If naloxone or flumazenil are used for reversal, hold in Phase I for continued monitoring from when last reversal dose was given for a minimum of 60 minutes or longer pending the nurse and/or physician discretion of patient condition before discharge to Phase II. Please call the Sedation Physician to re-evaluate and complete post-note for discharge to Phase II area. Do NOT discharge from procedure sedation or Phase 1 until post- sedation evaluation note is complete by procedure /sedation MD Sedation Discharge Instructions to be given to the patient at discharge to home.
--- NOTE | 2024-11-05 11:28 | Electrophysiology Report ---
Date of Service November 05, 2024 Electrophysiology Procedure Electrophysiology Procedure Report Procedure performed: Implantation of dual-chamber permanent pacemaker with left normal pacing lead Staff executive director sheltered workshop: Ry Mueller MD Indication: The patient is a 71-year-old gentleman who presented to the hospital with bradycardia in the setting of complete heart block. He was felt to be a good candidate for permanent pacemaker due to symptomatic nonreversible AV node dysfunction. Dual-chamber device was selected as he is currently in sinus rhythm and wished to maintain AV synchrony. Procedure in detail: The patient was informed of the risks benefits and alternatives to the intended procedure and she wished to proceed. He was taken to the electrophysiology suite in a fasting state. A preoperative antibiotic had been administered. The patient was monitored electrocardiographically throughout today's procedure and conscious sedation was administered per protocol. The left upper pectoral area was prepped and draped in usual sterile fashion. This area was anesthetized using subcutaneous administration of a xylocaine solution. An incision was made at this site and carried down to the prepectoralis fascia using sharp dissection. Electrocautery was also employed for dissection as well as for hemostasis. A device pocket was fashioned tissues above the pectoralis muscle. Subsequent to this maneuver the left axillary vein was accessed using modified Seldinger technique. A sheath was placed over guidewire and used to facilitate passage of a guiding catheter for mapping of the interventricular septum. Once an appropriate location was identified a pacing lead was advanced into the interventricular septum until the appropriate electrophysiologic characteristics were obtained. At this point the guiding catheter was removed. The proximal portion of the lead was then sutured the prepectoralis fascia using nonabsorbable suture. A sheath was placed over the remaining guidewire and used to facilitate passage of a pacing lead to the right atrium under fluoroscopic guidance. Adequate sensing and threshold parameters were obtained prior to active fixation of this lead to the endocardial surface. The proximal portion of the leads were then sutured the prepectoral fascia using nonabsorbable suture. The device pocket was irrigated with antibiotic solution. The leads were then attached to the device. The device and leads were then placed in the pocket and pocket was closed in 3 layers of absorbable suture. Steri-Strips and sterile dressing were applied. The device was tested noninvasively prior to conclusion the procedure. The patient tolerated procedure well there no immediate complications. Equipment used: New pulse generator: Resident Intern [employer]. Model number: [id number] serial number [id number] Right atrial lead: Resident Intern [employer]. Model number: [id number] serial number [id number] Right ventricular lead: Resident Intern [employer]. Model number: 3830 serial number [id number] Measured data: Right atrial lead: P waves measured 1.9 mV. Pacing threshold 1.5 V at 0.4 ms with a pacing PINS of 532 ohms Right ventricular lead: R waves measured 9.5 mV. Pacing threshold was 1.25 V at 0.4 ms with a pacing appearance of 684 ohms Impression: Successful implantation of dual-chamber permanent pacemaker with left bundle pacing lead [facility] Electrophysiology codes Pacing Procedure 1: Pacin Insert/Replace Pacer A & V PG Moderate Sedation Codes Moderate Sedation Codes Procedure 1: Sedation/Anesthesia: 58306 Mod Sedation by the same physician;Init15 Min Child Age 5 & Up Procedure 2: Sedation/Anesthesia: 15109 Mod Sedation by the same physician; Ea [id number] Minutes
[2024-11-05] MEDS: INSULIN ASPART PER UNIT CHARGE SC SCH (12:32)
--- NOTE | 2024-11-05 17:13 | Hospitalist Progress Note ---
Date of Service November 05, 2024 Assessment & Plan (1) Complete heart block: (2) Cellulitis: (3) Chronic diastolic CHF (congestive heart failure): (4) DMII (diabetes mellitus, type 2): (5) PAF (paroxysmal atrial fibrillation): (6) Sleep apnea: (7) Great toe pain: Plan 79yo male with HFpEF, afib, and T2DM who was admitted with complete heart block. #Complete heart block - -stable, s/p permanent pacemaker placement today by Dr Mueller -to have cxr in am -device to be checked in am -recent K/Mag/TSH all wnl -had not been on AV nataliya agents -Lyme negative #b/l great toe pain - -gout? but doesn't examine with synovitis -neuropathic pain? -referred pain from an L5 radiculopathy? but odd it would be b/l and so acute -other? -check x-rays of both great toes -check l-spine x-rays in the small chance this is radicular pain from l-spine but doubt -check uric acid level (is on HCTZ at home) along with CRP -tylenol prn #shallow L prabhakar wound and mild surrounding cellulitis - -by report a wood chip hit the L prabhakar when he was chopping wood at home -cont ceftriaxone daily, day #3 of such -cellulitis improved #Chronic HFpEF - -compensated at this time -continue Entresto -not on beta jose chronically but could use one since pacer is now in place -HCTZ is on hold -resume jardiance at discharge #PAF - -hold Xarelto and resume when ok with cardiology -no AV nataliya agents at baseline #DM type 2 - -holding glipizide, metformin -A1c 8.8% in July 2024 -cont basal-bolus insulin #TRAVIS - -CPAP #BPH - -cont flomax 0.4mg BID DVT ppx: Xarelto on hold for pacer placement today Admission and Anticipated Discharge Date Admission Date: November 03, 2024 Subjective no events overnight last night underwent pacemaker placement today w/o incident he was eating his meal during my rounds only complaint was that of b/l great toe pain and "feet just feel strange" pain started 2-3 days ago numb and tingling he told me it doesn't hurt to weight bear, but he told staff he notices the pain more with walking has never had this before he follows with the "neuropathy clinic" via the [place] but he states he doesn't have neuropathy does have chronic low back pain denies radicular pain down either leg no recent trauma Review of Systems Review of Systems: CV - no chest pain pulm - no dyspnea neuro - no dizziness GI - last stool?? Physical Exam Physical Exam: gen - NAD, sitting at side of bed eating his meal chest - dressing intact over pacer L upper chest neck - no JVD mouth - MMM heart - RRR, s1 s2, no murmur lungs - CTA b/l abd - soft NT ND BS+ ext - no edema, pulses b/l feet 2+, cap refill b/l great toes & b/l feet - 2-3 seconds; warm to touch musculo - b/l great toes - no synovitis, no pain with passive ROM; mid-foot b/l - no synovitis; no deformities either foot skin - superficial ulcer x 2 - no drainage; resolving cellulitis left prabhakar Results & Data Results & Data Vital Signs (Past 12 Hours) Vital Signs Temp Pulse Resp BP BP Pulse Ox O2 Del Method 11/05/24 14:24 36.5 C 55 L 18 148/73 H 94 Room Air 11/05/24 12:17 36.9 C 76 16 142/71 H 93 Room Air 11/05/24 11:45 58 L 16 156/70 H 93 Room Air 11/05/24 11:30 58 L 16 164/74 H 93 Room Air 11/05/24 10:01 57 L 14 178/78 H 95 Room Air 11/05/24 09:27 Room Air 11/05/24 07:32 36.9 C 102 H 20 109/71 93 Room Air Laboratory Results Laboratory Results - last 24 hr 11/05/24 11/05/24 11/05/24 06:22 11:57 16:28 Sodium 140 Potassium 3.5 Chloride 102 Carbon Dioxide 28 Anion Gap 10 BUN 17 Creatinine 1.21 Est Cr Clr Drug Dosing 55.8 eGFR 61.29 BUN/Creatinine Ratio 14.0 Glucose 147 H POC Glucose 119 H 105 H Calcium 8.7 Magnesium 1.9 PG Care Time/CCT Total # of Minutes Spent Total Time Spent with Patient: Total time spent is greater than 50% in coordination of care (as documented) at patient's floor/unit and/or counseling patient: Coding Level of Care Code 04481 SUB INP/OBS CARE 3/50MIN Diagnoses Complete heart block I44.2 Cellulitis L03.90 Chronic diastolic CHF (congestive heart failure) I50.32 DMII (diabetes mellitus, type 2) E11.9 PAF (paroxysmal atrial fibrillation) I48.0 Sleep apnea G47.30 Great toe pain M79.676
[2024-11-05] MEDS: ACETAMINOPHEN 500 MG TAB PO ONE (17:50)
--- NOTE | 2024-11-05 19:39 | XRay Report ---
Clinical history: Pain Technique: 4 views of the lumbar spine are submitted for review Findings: The lumbar vertebrae are in normal alignment with no listhesis seen. No fracture is identified. There are degenerative spurs throughout the lower thoracic and lumbar spine. There is facet osteoarthritis at L4-5 and L5-S1. No focal osseous lesion is seen. The bowel gas pattern appears unremarkable. Impression: 1. Multilevel degenerative disc disease 2. Lower lumbar facet osteoarthritis Electronically signed by Conrad Moreland 11-05-2024 7:39 PM
--- NOTE | 2024-11-05 19:40 | XRay Report ---
Clinical History: Pain. 3 views of the left great toe are submitted for review. Findings: No fracture or dislocation is seen. There is moderate severity osteoarthritis of the metatarsophalangeal joint. No other osseous abnormality is identified. There are no radiopaque foreign bodies. 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
--- NOTE | 2024-11-05 19:42 | XRay Report ---
Clinical History: Pain. 3 views of the right great toe are submitted for review. Findings: No fracture or dislocation is seen. There is mild osteoarthritis of the metatarsophalangeal joint. No other osseous abnormality is identified. There are no radiopaque foreign bodies. Impression: Osteoarthritis of the right great toe MTP joint Electronically signed by Conrad Moreland 11-05-2024 7:41 PM
[2024-11-06 06:30] LABS: Hematocrit (blood only) 44.4 % (42.0-52.0); Hemoglobin 14.0 g/dl (14.0-18.0); Mean Corpuscular Hemoglobin 25.7 pg (25.0-34.0); Mean Corpuscular Volume 81.5 fL (80.0-100.0); Platelet Count 144 K/uL (130-400); RDW Standard Deviation 51.8 fL (36.4-46.3); Red Blood Count 5.45 M/uL (4.70-6.10); White Blood Count 6.05 K/ul (4.8-10.8)
[2024-11-06 06:50] LABS: Uric Acid 7.8 mg/dl (2.6-7.2)
--- NOTE | 2024-11-06 07:41 | XRay Report ---
EXAM: XR chest 2V PA/lateral CLINICAL HISTORY: Evaluate for pneumothorax. TECHNIQUE: X-ray images of the chest were obtained in PA and lateral projections. COMPARISON: 11/03/2024 CR. FINDINGS: Pulmonary Parenchyma: There is no evidence of consolidation, collapse, or focal opacities. No pulmonary nodules are identified. There is no evidence of pleural effusion or pleural thickening. Heart and Mediastinum: The heart size and shape are normal. There is no mediastinal widening or masses. There is no hilar or mediastinal lymphadenopathy. There is a left-sided pacemaker with intact leads. There is no pneumothorax or related complications. Bony Thorax: The bony thorax appears intact, without fractures or deformities. Soft Tissues: The soft tissues overlying the chest wall are unremarkable. IMPRESSION: No acute cardiopulmonary abnormalities are identified. Electronically signed by Austin Castellon 11-06-2024 07:40 AM
[2024-11-06] MEDS: ACETAMINOPHEN 325 MG TAB PO PRN (09:08)
[2024-11-06 10:56] VITALS: BP 135/71; PULSE 92; RESP 18; TEMP 98.1; O2SAT 94
[2024-11-06 11:16] LABS: Anion Gap 14 (3-11); Blood Urea Nitrogen 22 mg/dl (6-23); Calcium 9.0 mg/dl (8.6-10.3); Carbon Dioxide 25 mmol/L (21-32); Chloride 101 mmol/L (98-107); Creatinine Clr Calc Pharmacy 48.6 ml/min; Glucose 163 mg/dl (70-99(Fasting)); Sodium 140 mmol/L (136-145)
--- NOTE | 2024-11-06 12:03 | Discharge Summary ---
Discharge Summary Date of Service November 06, 2024 Principal Dx & Hospital Course #1 = Principal Diagnosis (1) Complete heart block: (2) Cellulitis: (3) Chronic diastolic CHF (congestive heart failure): (4) DMII (diabetes mellitus, type 2): (5) PAF (paroxysmal atrial fibrillation): (6) Sleep apnea: (7) Great toe pain: Plan 79yo male with HFpEF, afib, and T2DM who was admitted with complete heart block. #Complete heart block - -stable, s/p permanent pacemaker placement today by Dr Mueller -to have cxr in am -device to be checked in am -recent K/Mag/TSH all wnl -had not been on AV nataliya agents -Lyme negative #b/l great toe pain - -gout? but doesn't examine with synovitis -neuropathic pain? -referred pain from an L5 radiculopathy? but odd it would be b/l and so acute -other? -check x-rays of both great toes -check l-spine x-rays in the small chance this is radicular pain from l-spine but doubt -check uric acid level (is on HCTZ at home) along with CRP -tylenol prn #shallow L prabhakar wound and mild surrounding cellulitis - -by report a wood chip hit the L prabhakar when he was chopping wood at home -cont ceftriaxone daily, day #3 of such -cellulitis improved #Chronic HFpEF - -compensated at this time -continue Entresto -not on beta jose chronically but could use one since pacer is now in place -HCTZ is on hold -resume jardiance at discharge #PAF - -hold Xarelto and resume when ok with cardiology -no AV nataliya agents at baseline #DM type 2 - -holding glipizide, metformin -A1c 8.8% in July 2024 -cont basal-bolus insulin #TRAVIS - -CPAP #BPH - -cont flomax 0.4mg BID DVT ppx: Xarelto on hold for pacer placement today Admission HPI Per Admitting Provider 79 y/o with HFpEF and afib, DM2 who was sent in to the ED by his doctor's office at the [place] because of heart monitor findings [facility] because he had bradycardia, irregular heart beats they noticed in office [facility] reviewed [facility] today - RN called and told him go to the ED. Holter monitor showed complete heart block. Has chronic BECK unchanged, no chest pain, no lightheadedness, no palpitations, no syncope. He is in his USOH. He feels like he could go home. He is on xarelto for afib but not on AV nataliya blockers TSH wnl and Lyme negative He has a left lower prabhakar wound that occurred while he was chopping wood. A wood piece flew off and struck his leg. There is some surrounding redness but not painful and no drainage, no fever. He's been putting bag balm on it. He has chronic LUTS Discharge Exam gen - NAD, sitting at side of bed eating his meal chest - dressing intact over pacer L upper chest neck - no JVD mouth - MMM heart - RRR, s1 s2, no murmur lungs - CTA b/l abd - soft NT ND BS+ ext - no edema, pulses b/l feet 2+, cap refill b/l great toes & b/l feet - 2-3 seconds; warm to touch musculo - b/l great toes - no synovitis, no pain with passive ROM; mid-foot b/l - no synovitis; no deformities either foot skin - superficial ulcer x 2 - no drainage; resolving cellulitis left prabhakar Discharge Plan Discharge Items Patient Disposition: Home - Self-Care Reason For Visit: COMPLETE HEART BLOCK Discharge Diagnosis: 1. 3rd degree heart block / complete heart block - pacemaker placement by Dr Albert Mueller, [facility] on 11/05/24 2. bilateral big toe pain - neuropathy? brewing gout? suspect neuropathy 3. cellulitis of left leg - improved 4. wound of left leg Activity: Per Instructions section Non-emergency contact: Primary Care Provider and Paint Spray Tender Call non-emergency contact if: you have any medication questions, you have a fever, your wound has increased redness, your wound has increased drainage and your wound pain has increased Follow-up/Referrals: Sandrine Malone DO, FACEP [Physician] - (if your left leg wound fails to heal please contact the [facility] ) Ry Mueller MD [Physician] - (pacemaker check within 5-7 days; Dr Mueller's office to contact you with appointment details.) [facility] [Primary Care Provider] - Diet: Carb Consistent or DM2 and Heart Healthy Addtl Attending Provider Instructions: Mr Mckinnon, You were hospitalized due to complete heart block (3rd degree heart block). The treatment for complete heart block is insertion of a permanent pacemaker. This was completed on 11/[address] Ry Mueller, [facility]. The pacemaker is working well, your incision looks good, and your chest x-ray on 11/06 shows proper positioning of the pacemaker and no complications from the procedure. You were also treated for cellulitis (skin infection) of your left leg. This improved nicely with antibiotics. The [facility] Wound team saw you to determine the best treatment for the wounds on the left prabhakar. See their instructions regarding the Aquacel Silver and Optifoam dressing changes. Lastly, you complained of bilateral big toe pain. x-rays showed no broken bones but mild arthritis of both toes. There was no evidence of gout of either big toe. It is possible that the pain is from neuropathy. If you develop redness, pain, swelling, or tenderness with placing weight on your feet please see your family doctor to get checked for gout of your big toes. Recommendations - 1. cephalexin 500mg three times daily x 7 days; this is your antibiotic for the skin infection of left leg; start TONIGHT, 11/06 2. dressing changes to the left prabhakar wounds; change every 2-3 days (see separate wound care instructions) 3. HOLD your Xarelto today; you can resume on Saturday, 11/07 4. HOLD your hydrochlorothiazide water pill/blood pressure pill for now 5. Your Entresto dose was REDUCED while here; I have sent a new prescription for your Entresto to [facility] for you 6. pacemaker incision - keep clean & dry; do NOT get wet; cover during "sponge baths" 7. ok to take tylenol 1000mg every 6 hours as needed for pain, maximum of 3000mg in 24 hours Follow-up - see separate section Return to [facility] if - * you have fever over 100 degrees * you have redness, swelling, drainage, or increasing pain from the pacemaker site OR the left prabhakar wounds * you are short of breath or have chest pains * you develop severe diarrhea (3 or more liquid stools in 24 hours) * your big toe pain worsens * any other concerns It was our pleasure to care for you! -Larry Hagen Gig Tender Provider Instructions: ACTIVITY RECOMMENDATIONS: * Do not raise LEFT arm over head, behind your back or neck, or above the level of the left shoulder for 2 weeks. SPECIAL CARE INSTRUCTIONS: * If bleeding occurs, apply direct pressure to area for 5 minutes. * Call your doctor if you have severe pain, fever, drainage or bleeding at site. * Keep dressing on and dry for 48 hours then remove. * Keep any scheduled doctor's appointment. * Implant Card - hand held device with website information given. SKIN IRRITATION: * You may experience some redness and/or swelling in the area where radiation was administered. If any skin irritation occurs, please contact your family physician. FOLLOW UP VISIT: Keep any scheduled doctor appointments. Pending Studies at Discharge: No Stand-Alone Forms: My [facility] [employer], Smoking Cessation Medications and DC Order Prescriptions: New cephalexin 500 mg capsule 500 mg PO TID 7 Days Qty: 21 0RF Continued ascorbic acid (vitamin C) 250 mg tablet 250 mg PO DAILY atorvastatin 80 mg tablet 80 mg PO HS cholecalciferol (vitamin D3) 25 mcg (1,000 unit) capsule 25 mcg PO DAILY omega 4-fyu-aui-fish oil [Fish Oil] 1,000 mg (120 mg-180 mg) capsule 1 cap PO DAILY tamsulosin [Flomax] 0.4 mg capsule 0.4 mg PO BID ferrous sulfate 325 mg (65 mg iron) tablet 325 mg PO Q OTHER DAY urea 20 % Cream 1 applic TOPICAL DAILY PRN (Reason: Dry Skin) folic acid 1 mg Tablet 1 mg PO DAILY ketoconazole 2 % Cream 1 applic TOPICAL BID clotrimazole 1 % Cream 1 applic TOPICAL BID magnesium 200 mg Tablet 400 mg PO TID empagliflozin-metformin 25-1,000 mg Tablet, Ir - Er, Biphasic 24hr 1 tab PO DAILY sacubitril-valsartan 49-51 mg tablet 1 tab PO BID Qty: 60 1RF Held Xarelto 20 mg tablet 20 mg PO DAILY Hold Instructions: Resume on 11/07/24. Rx Instructions: must administer with evening meal hydrochlorothiazide 25 mg Tablet 25 mg PO DAILY Hold Instructions: hold until you see your outpatient providers Discharge Orders: Discharge Order (Routine); Ordered 11/06/24 Ordered By: Larry Ennis/Other Patient Handouts: Pacemakers, Heart Block 3rd Degree Admission Data Admit Date/Time: 11/03/24 13:55 Attending Provider: Larry Kirby Admit Provider: Gabbi Mccann Primary Care Provider: [facility] Other Providers: Gabbi Mccann; Ollie Park Other Interventions: Discharge Summary Assessment (RN) Last Done: 11/06/24 11:05 Hospital Stay Data Consultations 11/03/24 13:01 ED Decision to Admit Stat 11/03/24 13:58 Consult Cardiology Stat Procedures Performed Operation Date: 11/05/24 10:00 Actual Procedures p Pacer with A/V Leads (Dual) - Ry Mueller MD Diagnostic Imagining Performed 11/05/24 10:30 EP Lab Images for PACS ONCE Pending Results Patient Have Any Pending Studies at Discharge: No Discharge Instructions Given to Patient (Per Discharging Provider) Ty Simental were hospitalized due to complete heart block (3rd degree heart block). The treatment for complete heart block is insertion of a permanent pacemaker. This was completed on 11/[address] Ry Mueller, [facility]. The pacemaker is working well, your incision looks good, and your chest x-ray on 11/06 shows proper positioning of the pacemaker and no complications from the procedure. You were also treated for cellulitis (skin infection) of your left leg. This improved nicely with antibiotics. The [facility]ound team saw you to determine the best treatment for the wounds on the left prabhakar. See their instructions regarding the Aquacel Silver and Optifoam dressing changes. Lastly, you complained of bilateral big toe pain. x-rays showed no broken bones but mild arthritis of both toes. There was no evidence of gout of either big toe. It is possible that the pain is from neuropathy. If you develop redness, pain, swelling, or tenderness with placing weight on your feet please see your family doctor to get checked for gout of your big toes. Recommendations - 1. cephalexin 500mg three times daily x 7 days; this is your antibiotic for the skin infection of left leg; start TON, 11/06 2. dressing changes to the left prabhakar wounds; change every 2-3 days (see separate wound care instructions) 3. HOLD your Xarelto today; you can resume on Saturday, 11/07 4. HOLD your hydrochlorothiazide water pill/blood pressure pill for now 5. Your Entresto dose was REDUCED while here; I [facility] 6. pacemaker incision - keep clean & dry; do NOT get wet; cover during "sponge baths" 7. ok to take tylenol 1000mg every 6 hours as needed for pain, maximum of 3000mg in 24 hours Follow-up - see separate section Return to [facility] if - * you have fever over 100 degrees * you have redness, swelling, drainage, or increasing pain from the pacemaker site OR the left prabhakar wounds * you are short of breath or have chest pains * you develop severe diarrhea (3 or more liquid stools in 24 hours) * your big toe pain worsens * any other concerns It was our pleasure to care for you! -Larry Kirby Coding Diagnoses Complete heart block I44.2 Cellulitis L03.90 Chronic diastolic CHF (congestive heart failure) I50.32 DMII (diabetes mellitus, type 2) E11.9 PAF (paroxysmal atrial fibrillation) I48.0 Sleep apnea G47.30 Great toe pain M79.676
== END 2024-11-06 13:23 | disposition home or self-care (01) | DRG 243 ==
LOC: ED 11:57 → SUATTDRO 13:55 → EDINP 13:55 → 2S 15:25